=== PATIENT | female | born 1950 | race African-American/Black ===

== ENCOUNTER 2017-03-28 13:19 | Emergency (ER) | payer MEDICARE, MEDICAID ==
[~2017-03-28] VITALS: Ht 160 cm; Wt 63.0 kg
[~2017-03-28 13:19] MED LIST: ALBU6.7H2 IH; AMLO5TAB4 PO; ASPI-1158 PO; ATEN50TA PO; AZIT500T5 PO; BACL-141 PO; DIGO125T82 PO; FLUT1DIS3 IH; FURO-151 PO; SIMV20TA6 PO
[2017-03-28 20:04] LABS: CLARITY URINE CLOUDY (CLEAR); COLOR URINE YELLOW (YELLOW); GLUCOSE URINE NEGATIVE (NEGATIVE); KETONES URINE NEGATIVE (NEGATIVE); LEUKOCYTE ESTERASE URINE 3+ (NEGATIVE); NITRITE URINE NEGATIVE (NEGATIVE); OCCULT BLOOD URINE 3+ (NEGATIVE); PH URINE 5.5 (4.5-8.0); PROTEIN URINE 1+ (NEGATIVE); SPECIFIC GRAVITY URINE 1.013 (1.005-1.030); UROBILINOGEN URINE 0.2 E.U./dL (0.2-1.0)
[2017-03-28 20:10] LABS: BASOPHILS % 0.8 % (0.0-2.0); EOSINOPHILS % 3.1 % (0.0-5.0); HEMATOCRIT. 32.9 % (36.0-48.0); HEMOGLOBIN. 10.8 g/dL (12.0-16.0); LYMPHOCYTES % 32.2 % (20.0-50.0); MEAN CORPUSCULAR HEMOGLOBIN 28.4 pg (28.0-32.0); MEAN PLATELET VOLUME 7.6 fl (7.4-10.4); MONOCYTES % 7.6 % (2.0-8.0); NEUTROPHILS % 56.3 % (40.0-76.0); PLATELET 273 x1000/uL (130-400); RED BLOOD CELL COUNT 3.82 mill/uL (4.2-5.4)
[2017-03-28 20:15] LABS: CHLORIDE 102 mEq/L (98-107)
[2017-03-28 20:18] LABS: INR 1.1; PROTHROMBIN TIME 11.3 sec
[2017-03-28 20:22] LABS: CARBON DIOXIDE 32 mEq/L (21-32)
[2017-03-28 21:43] VITALS: BP 129/78
[2017-04-02] MEDS ORDERED: HYDR-519 PO (17:19)
== END 2017-03-28 22:46 | disposition home or self-care (01) ==
LOC: ER 13:19
DX: N39.0 Urinary tract infection, site not specified (principal); J44.9 Chronic obstructive pulmonary disease, unspecified; I10 Essential (primary) hypertension; Z87.891 Personal history of nicotine dependence; Z79.82 Long term (current) use of aspirin; Z87.01 Personal history of pneumonia (recurrent); Z88.0 Allergy status to penicillin
CPT/HCPCS: 36415; 80053; 81001; 83690; 85025; 85610; 99284

== ENCOUNTER 2017-04-17 13:34 | Emergency (ER) | payer MEDICARE, MEDICAID ==
[~2017-04-17] VITALS: Ht 160 cm; Wt 53.0 kg
[~2017-04-17 13:34] MED LIST changes: +HYDR-519 PO; +LOSA50TA20 PO; +MONT10TA24 PO; +NITR-87 PO
[2017-04-17 16:50] VITALS: BP 152/78
[2017-04-17] MEDS: TRAMADOL 50MG TABLET PO ONE (16:50)
== END 2017-04-17 18:59 | disposition home or self-care (01) ==
LOC: ER 18:59
DX: M25.562 Pain in left knee (principal); J44.9 Chronic obstructive pulmonary disease, unspecified; I10 Essential (primary) hypertension; M19.90 Unspecified osteoarthritis, unspecified site; Z79.82 Long term (current) use of aspirin; Z88.0 Allergy status to penicillin
CPT/HCPCS: 73560; 99284

== ENCOUNTER 2017-05-07 12:49 | Emergency (ER) | payer MEDICAID, MEDICARE ==
[~2017-05-07] VITALS: Ht 160 cm; Wt 54.0 kg
[2017-05-07 13:39] VITALS: BP 135/56
== END 2017-05-07 23:50 | disposition left against medical advice (07) ==
LOC: ER 12:49
DX: Z46.6 Encounter for fitting and adjustment of urinary device (principal); Z53.21 Procedure and treatment not carried out due to patient leaving prior to being seen by health care provider

== ENCOUNTER 2017-05-26 18:40 | Observation (INO) | payer MEDICARE, MEDICAID ==
[~2017-05-26] VITALS: Ht 157.5 cm; Wt 52.6 kg
[~2017-05-26 18:40] MED LIST changes: -ALBU6.7H2 IH; +ALBU6.7H3 IH
[2017-05-26] MEDS ORDERED: SODIUM CHLORIDE 0.9% 500 ML IV ONE (22:39)
[2017-05-26] MEDS ORDERED: MORPHINE SULFATE 4 MG/ML CPJ (NOT FOR IM USE) IV STA (22:39)
[2017-05-26] MEDS ORDERED: ONDANSETRON HCL 4MG/2ML VIAL IV STA (22:39)
[2017-05-26 23:31] LABS: EOSINOPHILS % 5.3 % (0.0-5.0); HEMATOCRIT. 32.7 % (36.0-48.0); HEMOGLOBIN. 10.8 g/dL (12.0-16.0); LYMPHOCYTES % 23.4 % (20.0-50.0); MEAN CORPUSCULAR HEMOGLOBIN 28.5 pg (28.0-32.0); MEAN CORPUSCULAR VOLUME 86.3 fL (81.0-99.0); MEAN PLATELET VOLUME 7.8 fl (7.4-10.4); NEUTROPHILS % 63.3 % (40.0-76.0); PLATELET 240 x1000/uL (130-400); RED CELL DISTRIBUTION WIDTH 15.1 % (11.6-14.6)
[2017-05-26 23:37] LABS: CHLORIDE 104 mEq/L (98-107)
[2017-05-26 23:40] LABS: INR 1.1; PROTHROMBIN TIME 11.4 sec (9.4-11.6)
[2017-05-26 23:41] LABS: CARBON DIOXIDE 29 mEq/L (21-32)
[2017-05-26 23:58] LABS: DIGOXIN 1.3 ng/mL (0.9-2.0)
[2017-05-27 01:15] LABS: CLARITY URINE TURBID (CLEAR); COLOR URINE YELLOW (YELLOW); KETONES URINE NEGATIVE (NEGATIVE); LEUKOCYTE ESTERASE URINE 3+ (NEGATIVE); NITRITE URINE NEGATIVE (NEGATIVE); OCCULT BLOOD URINE NEGATIVE (NEGATIVE); PH URINE >=9.0 (4.5-8.0); PROTEIN URINE 2+ (NEGATIVE); SPECIFIC GRAVITY URINE 1.019 (1.005-1.030)
[2017-05-27 03:45] VITALS: BP 142/51
[2017-05-27 05:00] VITALS: BP 142/51
[2017-05-27] MEDS ORDERED: ATROV3 NS (05:16)
[2017-05-27] MEDS ORDERED: IBUPROFEN 600MG TABLET PO PRN (10:15)
[2017-05-27 12:34] VITALS: BP 131/62
== END 2017-05-27 13:10 | disposition home health service (06) ==
LOC: ER 21:58 → EDBEDREQTM 05-27 00:31 → EDBEDREQSVC 05-27 00:31 → EDBEDREQ 05-27 00:31 → INTOOBSV 05-27 00:31 → 6EST 05-27 00:31 → ENRESERV 05-27 01:31
PROVIDERS: ADMIT Obstetrics & Gynecology; ATTEND Obstetrics & Gynecology
DX: N81.4 Uterovaginal prolapse, unspecified (principal); J44.9 Chronic obstructive pulmonary disease, unspecified; I10 Essential (primary) hypertension; Z87.01 Personal history of pneumonia (recurrent); Z87.440 Personal history of urinary (tract) infections; Z99.81 Dependence on supplemental oxygen
CPT/HCPCS: 36415; 76856; 80053; 80162; 81001; 83690; 85025; 85610; 86850; 86900; 86901; 96361; 96374; 96375; 99285; G0378; J2270; J2405; J7030

== ENCOUNTER 2017-05-30 14:53 | Emergency (ER) | payer MEDICARE, MEDICAID ==
[~2017-05-30] VITALS: Ht 162.6 cm; Wt 65.0 kg
[~2017-05-30 14:53] MED LIST changes: +ALBU6.7H2 IH; -ALBU6.7H3 IH; +ATROV3 NS
[2017-05-30 18:48] LABS: CLARITY URINE TURBID (CLEAR); COLOR URINE YELLOW (YELLOW); GLUCOSE URINE 1+ (NEGATIVE); KETONES URINE NEGATIVE (NEGATIVE); LEUKOCYTE ESTERASE URINE 3+ (NEGATIVE); NITRITE URINE NEGATIVE (NEGATIVE); OCCULT BLOOD URINE NEGATIVE (NEGATIVE); PH URINE >=9.0 (4.5-8.0); PROTEIN URINE 2+ (NEGATIVE); SPECIFIC GRAVITY URINE 1.017 (1.005-1.030)
[2017-05-30] MEDS ORDERED: KETOROLAC 15MG/ML VIAL IV ONE (20:15)
[2017-05-30 22:42] VITALS: BP 139/79
== END 2017-05-30 22:53 | disposition home or self-care (01) ==
LOC: ER 14:53
DX: N81.4 Uterovaginal prolapse, unspecified (principal); N39.0 Urinary tract infection, site not specified; J44.9 Chronic obstructive pulmonary disease, unspecified; I10 Essential (primary) hypertension; Z88.0 Allergy status to penicillin
CPT/HCPCS: 51702; 81001; 87077; 87086; 96374; 99284; J1885

== ENCOUNTER 2017-06-01 20:26 | Inpatient (IN) | payer MEDICARE, MEDICAID ==
[~2017-06-01] VITALS: Ht 160 cm; Wt 54.5 kg
[2017-06-01] MEDS ORDERED: SODIUM CHLORIDE 0.9% 500 ML IV ONE (22:29)
[2017-06-01] MEDS ORDERED: ACETAMINOPHEN 325MG TABLET PO ONE (22:30)
[2017-06-01] MEDS ORDERED: SODIUM CHLORIDE 0.9% 1000ML BAG (SEPSIS BOLUS) IV ONE (22:30)
[2017-06-01] MEDS ORDERED: LEVOFLOXACIN 750MG PREMIX 150 ML IV ONE (22:30)
[2017-06-01 23:19] LABS: INR 1.2; PROTHROMBIN TIME 12.3 sec (9.4-11.6)
[2017-06-01 23:21] LABS: HEMATOCRIT. 31.8 % (36.0-48.0); HEMOGLOBIN. 10.4 g/dL (12.0-16.0); MEAN CORPUSCULAR HEMOGLOBIN 28.2 pg (28.0-32.0); MEAN CORPUSCULAR VOLUME 86.1 fL (81.0-99.0); MEAN PLATELET VOLUME 8.5 fl (7.4-10.4); PLATELET 211 x1000/uL (130-400); RED CELL DISTRIBUTION WIDTH 14.9 % (11.6-14.6)
[2017-06-01 23:27] LABS: CARBON DIOXIDE 28 mEq/L (21-32); CHLORIDE 100 mEq/L (98-107); TROPONIN I < 0.02 ng/mL (0.00-0.04)
[2017-06-02 00:09] LABS: CLARITY URINE TURBID (CLEAR); COLOR URINE YELLOW (YELLOW); GLUCOSE URINE NEGATIVE (NEGATIVE); KETONES URINE NEGATIVE (NEGATIVE); LEUKOCYTE ESTERASE URINE 3+ (NEGATIVE); NITRITE URINE NEGATIVE (NEGATIVE); OCCULT BLOOD URINE 3+ (NEGATIVE); PROTEIN URINE 2+ (NEGATIVE); SPECIFIC GRAVITY URINE 1.017 (1.005-1.030)
[2017-06-02 01:02] LABS: PLATELET ESTIMATE NORMAL
[2017-06-02] MEDS ORDERED: MAGNESIUM/ALUMINUM HYDROXIDE/SIMETHICONE 30ML UDC PO PRN (01:15)
[2017-06-02] MEDS ORDERED: CLONIDINE 0.1MG TABLET PO PRN ×2 (01:15→13:15)
[2017-06-02] MEDS ORDERED: ONDANSETRON HCL 4MG/2ML VIAL IV PRN (01:15)
[2017-06-02] MEDS ORDERED: LEVOFLOXACIN 500MG PREMIX 100 ML IV SCH (01:15)
[2017-06-02 03:53] VITALS: BP 121/71
[2017-06-02] MEDS: ACETAMINOPHEN 325MG TABLET PO PRN ×3 (03:53→20:22)
[2017-06-02 04:00] VITALS: BP 121/71
[2017-06-02] MEDS ORDERED: VANCOMYCIN 1 G PREMIX 200 ML IV NR (06:00)
[2017-06-02 08:00] VITALS: BP 99/52
[2017-06-02 09:53] LABS: BASOPHILS % 0.4 % (0.0-2.0); EOSINOPHILS % 1.1 % (0.0-5.0); HEMOGLOBIN. 9.8 g/dL (12.0-16.0); MEAN CORPUSCULAR HEMOGLOBIN 28.6 pg (28.0-32.0); MEAN PLATELET VOLUME 8.5 fl (7.4-10.4); MONOCYTES % 12.9 % (2.0-8.0); NEUTROPHILS % 72.6 % (40.0-76.0); PLATELET 184 x1000/uL (130-400); RED BLOOD CELL COUNT 3.45 mill/uL (4.2-5.4)
[2017-06-02] MEDS: SODIUM CHLORIDE 0.9% 1,000 ML IV SCH (12:00)
[2017-06-02] MEDS: ENOXAPARIN 40MG/0.4ML SYR SUBCUT SCH (12:10)
[2017-06-02 12:43] LABS: HEPATITIS B SURFACE ANTIGEN NEGATIVE
[2017-06-02] MEDS ORDERED: ALBUTEROL (0.5%) 2.5MG/0.5ML NEB HHN PRN (13:15)
[2017-06-02] MEDS: ASPIRIN 81MG EC TABLET PO SCH (13:48)
[2017-06-02] MEDS: AMLODIPINE 2.5MG TABLET PO SCH ×2 (13:49→21:00)
[2017-06-02] MEDS: IPRATROPIUM BROMIDE (0.02%) 0.5MG/2.5ML NEB HHN PRN (13:57)
[2017-06-02] MEDS: VANCOMYCIN 1 G PREMIX 200 ML IV SCH (15:04)
[2017-06-02 16:00] VITALS: BP 118/67
[2017-06-02] MEDS ORDERED: NAPR220T66 PO (19:18)
[2017-06-02] MEDS ORDERED: ATOR20TA PO (19:18)
[2017-06-02 20:00] VITALS: BP 122/74
[2017-06-02] MEDS ORDERED: VANCOMYCIN 750 MG PREMIX 150 ML IV SCH (20:00)
[2017-06-03] VITALS: BP 128/72
[2017-06-03] MEDS: LEVOFLOXACIN 250MG PREMIX 50 ML IV SCH (00:33)
[2017-06-03] MEDS: SODIUM CHLORIDE 0.9% 1,000 ML IV SCH (00:34)
[2017-06-03] MEDS: IPRATROPIUM BROMIDE (0.02%) 0.5MG/2.5ML NEB HHN PRN ×3 (01:35→21:33)
[2017-06-03 04:00] VITALS: BP 133/75
[2017-06-03] MEDS: ACETAMINOPHEN 325MG TABLET PO PRN ×2 (04:06→20:39)
[2017-06-03 06:17] LABS: HEMATOCRIT. 28.2 % (36.0-48.0); HEMOGLOBIN. 9.2 g/dL (12.0-16.0); MEAN CORPUSCULAR HEMOGLOBIN 28.2 pg (28.0-32.0); MEAN CORPUSCULAR VOLUME 86.4 fL (81.0-99.0); MEAN PLATELET VOLUME 8.5 fl (7.4-10.4); PLATELET 173 x1000/uL (130-400); RED BLOOD CELL COUNT 3.27 mill/uL (4.2-5.4); RED CELL DISTRIBUTION WIDTH 14.9 % (11.6-14.6)
[2017-06-03 06:42] LABS: CHLORIDE 105 mEq/L (98-107)
[2017-06-03 07:01] LABS: CARBON DIOXIDE 25 mEq/L (21-32); CREATINE KINASE 76 IU/L (26-192); CREATINE KINASE MB FRACTION 0.7 ng/mL (0.5-3.6); TROPONIN I < 0.02 ng/mL (0.00-0.04)
[2017-06-03 08:00] VITALS: BP 128/72
[2017-06-03] MEDS: AMLODIPINE 2.5MG TABLET PO SCH ×2 (08:29→20:39)
[2017-06-03] MEDS: ASPIRIN 81MG EC TABLET PO SCH (08:30)
[2017-06-03] MEDS: VANCOMYCIN 1 G PREMIX 200 ML IV SCH (11:35)
[2017-06-03 12:00] VITALS: BP 129/79
[2017-06-03] MEDS: ENOXAPARIN 40MG/0.4ML SYR SUBCUT SCH (13:00)
[2017-06-03] MEDS ORDERED: NA PHOS,M-B/NA PHOS,DI-BA ENEMA 118ML PR SCH (14:30)
[2017-06-03] MEDS ORDERED: NA PHOS,M-B/NA PHOS,DI-BA ENEMA 118ML PR PRN (14:30)
[2017-06-03] MEDS ORDERED: LACTULOSE 20G/30ML UDC PO SCH (14:30)
[2017-06-03] MEDS ORDERED: DOCUSATE SODIUM 100MG CAPSULE PO SCH (14:35)
[2017-06-03 16:00] VITALS: BP 126/63
[2017-06-03] MEDS: DOCUSATE SODIUM 250MG CAPSULE PO SCH (18:38)
[2017-06-03 18:56] LABS: PLATELET ESTIMATE NORMAL
[2017-06-03 20:00] VITALS: BP 124/76
[2017-06-04] VITALS: BP 132/75
[2017-06-04] MEDS: LEVOFLOXACIN 250MG PREMIX 50 ML IV SCH (01:39)
[2017-06-04] MEDS: SODIUM CHLORIDE 0.9% 1,000 ML IV SCH (03:35)
[2017-06-04] MEDS: VANCOMYCIN 1 G PREMIX 200 ML IV SCH (03:35)
[2017-06-04 04:00] VITALS: BP 131/77
[2017-06-04] MEDS: ACETAMINOPHEN 325MG TABLET PO PRN (06:23)
[2017-06-04 06:41] LABS: BASOPHILS % 0.7 % (0.0-2.0); EOSINOPHILS % 4.9 % (0.0-5.0); HEMATOCRIT. 28.4 % (36.0-48.0); HEMOGLOBIN. 9.4 g/dL (12.0-16.0); MEAN CORPUSCULAR HEMOGLOBIN 28.3 pg (28.0-32.0); MEAN CORPUSCULAR VOLUME 85.1 fL (81.0-99.0); MEAN PLATELET VOLUME 8.3 fl (7.4-10.4); MONOCYTES % 12.4 % (2.0-8.0); PLATELET 206 x1000/uL (130-400); RED BLOOD CELL COUNT 3.34 mill/uL (4.2-5.4); RED CELL DISTRIBUTION WIDTH 15.1 % (11.6-14.6)
[2017-06-04 07:59] LABS: CARBON DIOXIDE 28 mEq/L (21-32); CHLORIDE 103 mEq/L (98-107); PHOSPHORUS 2.3 mg/dL (2.5-4.9)
[2017-06-04 08:00] VITALS: BP 110/77
[2017-06-04] MEDS: ASPIRIN 81MG EC TABLET PO SCH (08:28)
[2017-06-04] MEDS: AMLODIPINE 2.5MG TABLET PO SCH ×3 (08:28→21:00)
[2017-06-04] MEDS: DOCUSATE SODIUM 250MG CAPSULE PO SCH (08:29)
[2017-06-04] MEDS: ENOXAPARIN 40MG/0.4ML SYR SUBCUT SCH (08:34)
[2017-06-04 12:00] VITALS: BP 133/72
[2017-06-04] MEDS ORDERED: SODIUM PHOS,M-BASIC-D-BASIC 15 MM in DEXT 5% WATER 245 ML IV NR (12:00)
[2017-06-04] MEDS ORDERED: FENTANYL CITRATE/PF 50MCG/ML 2ML VIAL ONE ×2 (15:38→16:30)
[2017-06-04] MEDS ORDERED: MIDAZOLAM HCL 2 MG/2 ML VIAL ONE (15:38)
[2017-06-04] MEDS ORDERED: PROPOFOL 200MG/20ML VIAL IV ONE (15:39)
[2017-06-04] MEDS ORDERED: LIDOCAINE HCL 1% 20ML VIAL (Pyxis) INJ ONE (15:39)
[2017-06-04] MEDS ORDERED: ROCURONIUM BROMIDE 10MG/ML VIAL 5ML IV ONE (15:39)
[2017-06-04] MEDS ORDERED: SODIUM CHLORIDE 0.9% 1,000 ML IV SCH (16:27)
[2017-06-04] MEDS ORDERED: DEXAMETHASONE 4MG/ML 1ML VIAL ONE (16:30)
[2017-06-04] MEDS ORDERED: ONDANSETRON HCL 4MG/2ML VIAL IV PRN ×2 (16:30→18:00)
[2017-06-04] MEDS ORDERED: ONDANSETRON HCL 4MG/2ML VIAL ONE (16:30)
[2017-06-04] MEDS ORDERED: DIPHENHYDRAMINE 25MG CAPSULE PO PRN (18:00)
[2017-06-04] MEDS ORDERED: LEVOFLOXACIN 250MG PREMIX 50 ML IV SCH (18:00)
[2017-06-04] MEDS ORDERED: HYDROCODONE/ACETAMINOPHEN 5/325MG TABLET PO PRN (18:00)
[2017-06-04] MEDS ORDERED: ACETAMINOPHEN 500MG TABLET PO PRN (18:00)
[2017-06-04] MEDS ORDERED: KETOROLAC 30MG/ML VIAL ONE (18:04)
[2017-06-04] MEDS: HYDROMORPHONE HCL/PF 2MG/ML CPJ IV PRN ×4 (18:17→19:09)
[2017-06-04] MEDS: ALBUTEROL (0.5%) 2.5MG/0.5ML NEB HHN SCH ×2 (18:50→21:22)
[2017-06-04] MEDS: IPRATROPIUM BROMIDE (0.02%) 0.5MG/2.5ML NEB HHN SCH (18:50)
[2017-06-04] MEDS ORDERED: LABETALOL 5MG/ML SYR 20 MG/4 ML SYRINGE IV PRN (19:00)
[2017-06-04] MEDS: DOCUSATE SODIUM 100MG CAPSULE PO SCH (21:00)
[2017-06-04] MEDS: HYDROMORPHONE HCL/PF 2MG/ML CPJ IM PRN (21:24)
[2017-06-05] VITALS (7 sets, daily range): BP systolic 101–141; BP diastolic 51–85
[2017-06-05] MEDS: HYDROMORPHONE HCL/PF 2MG/ML CPJ IM PRN ×4 (00:21→12:02)
[2017-06-05] MEDS: ALBUTEROL (0.5%) 2.5MG/0.5ML NEB HHN SCH ×3 (00:49→12:02)
[2017-06-05] MEDS: SIMETHICONE 80MG TABLET CHEW PO SCH ×5 (02:41→21:00)
[2017-06-05] MEDS: CLONIDINE 0.1MG TABLET PO SCH ×4 (02:42→18:00)
[2017-06-05] MEDS: DEXT 5%/LACTATED RINGERS 1,000 ML IV SCH ×2 (02:42→14:49)
[2017-06-05] MEDS: VANCOMYCIN 1 G PREMIX 200 ML IV SCH (02:44)
[2017-06-05] MEDS: LEVOFLOXACIN 250MG PREMIX 50 ML IV SCH (02:46)
[2017-06-05] MEDS: SODIUM CHLORIDE 0.9% 1,000 ML IV SCH ×3 (05:40→23:05)
[2017-06-05 06:30] LABS: HEMATOCRIT. 25.3 % (36.0-48.0); HEMOGLOBIN. 8.3 g/dL (12.0-16.0); MEAN CORPUSCULAR VOLUME 85.1 fL (81.0-99.0); MEAN PLATELET VOLUME 8.1 fl (7.4-10.4); PLATELET 230 x1000/uL (130-400); RED BLOOD CELL COUNT 2.98 mill/uL (4.2-5.4)
[2017-06-05 06:58] LABS: CARBON DIOXIDE 27 mEq/L (21-32); CHLORIDE 104 mEq/L (98-107)
[2017-06-05] MEDS: IPRATROPIUM BROMIDE (0.02%) 0.5MG/2.5ML NEB HHN SCH ×4 (08:16→21:18)
[2017-06-05] MEDS: AMLODIPINE 2.5MG TABLET PO SCH ×3 (08:46→21:00)
[2017-06-05] MEDS: HYDROCODONE/ACETAMINOPHEN 5/325MG TABLET PO PRN ×3 (08:48→23:04)
[2017-06-05] MEDS: ASPIRIN 81MG TABLET PO SCH (08:49)
[2017-06-05] MEDS: DOCUSATE SODIUM 250MG CAPSULE PO SCH (08:49)
[2017-06-05] MEDS: ASPIRIN 81MG EC TABLET PO SCH (09:00)
[2017-06-05] MEDS ORDERED: ENOXAPARIN 40MG/0.4ML SYR SUBCUT SCH (09:00)
[2017-06-05] MEDS: ENOXAPARIN 40MG/0.4ML SYR SUBCUT SCH (12:53)
[2017-06-05 13:38] LABS: PLATELET ESTIMATE NORMAL
[2017-06-05] MEDS: HYDROMORPHONE HCL/PF 2MG/ML CPJ IV PRN (19:47)
[2017-06-05] MEDS: DOCUSATE SODIUM 100MG CAPSULE PO SCH (21:33)
[2017-06-05] MEDS: CEPHALEXIN 500MG CAPSULE PO SCH (21:33)
[2017-06-06] MEDS: CLONIDINE 0.1MG TABLET PO SCH ×6 (00:08→23:38)
[2017-06-06] MEDS: IPRATROPIUM BROMIDE (0.02%) 0.5MG/2.5ML NEB HHN SCH ×6 (01:18→21:00)
[2017-06-06] MEDS: HYDROMORPHONE HCL/PF 2MG/ML CPJ IV PRN ×3 (01:58→17:45)
[2017-06-06 04:00] VITALS: BP 146/79
[2017-06-06] MEDS: HYDROCODONE/ACETAMINOPHEN 5/325MG TABLET PO PRN ×3 (05:18→20:33)
[2017-06-06] MEDS: CEPHALEXIN 500MG CAPSULE PO SCH ×3 (06:10→22:23)
[2017-06-06 08:00] VITALS: BP 140/78
[2017-06-06] MEDS: DOCUSATE SODIUM 250MG CAPSULE PO SCH (09:11)
[2017-06-06] MEDS: ASPIRIN 81MG TABLET PO SCH (09:12)
[2017-06-06] MEDS: SIMETHICONE 80MG TABLET CHEW PO SCH ×4 (09:12→21:15)
[2017-06-06] MEDS: AMLODIPINE 2.5MG TABLET PO SCH ×2 (09:13→21:00)
[2017-06-06 11:00] LABS: BASOPHILS % 0.7 % (0.0-2.0); EOSINOPHILS % 4.1 % (0.0-5.0); HEMATOCRIT. 25.5 % (36.0-48.0); HEMOGLOBIN. 8.6 g/dL (12.0-16.0); LYMPHOCYTES % 15.3 % (20.0-50.0); MEAN CORPUSCULAR VOLUME 86.3 fL (81.0-99.0); MEAN PLATELET VOLUME 7.9 fl (7.4-10.4); MONOCYTES % 5.9 % (2.0-8.0); PLATELET 244 x1000/uL (130-400); RED BLOOD CELL COUNT 2.95 mill/uL (4.2-5.4)
[2017-06-06 11:30] LABS: CHLORIDE 101 mEq/L (98-107)
[2017-06-06 11:37] LABS: CARBON DIOXIDE 29 mEq/L (21-32)
[2017-06-06 12:00] VITALS: BP 128/65
[2017-06-06] MEDS: ENOXAPARIN 40MG/0.4ML SYR SUBCUT SCH (13:11)
[2017-06-06] MEDS: LACTULOSE 20G/30ML UDC PO PRN (13:24)
[2017-06-06 16:00] VITALS: BP 119/70
[2017-06-06 19:55] VITALS: BP 107/53
[2017-06-06 20:00] VITALS: BP 105/53
[2017-06-06] MEDS: ALBUTEROL (0.5%) 2.5MG/0.5ML NEB HHN SCH (21:14)
[2017-06-06] MEDS: DOCUSATE SODIUM 100MG CAPSULE PO SCH (21:15)
[2017-06-07] VITALS: BP 92/53
[2017-06-07] MEDS: ALBUTEROL (0.5%) 2.5MG/0.5ML NEB HHN SCH ×6 (01:07→16:17)
[2017-06-07] MEDS: IPRATROPIUM BROMIDE (0.02%) 0.5MG/2.5ML NEB HHN SCH ×7 (01:08→21:23)
[2017-06-07 04:00] VITALS: BP 116/70
[2017-06-07] MEDS: HYDROMORPHONE HCL/PF 2MG/ML CPJ IV PRN ×3 (05:45→17:46)
[2017-06-07] MEDS: CLONIDINE 0.1MG TABLET PO SCH ×3 (06:00→17:46)
[2017-06-07] MEDS: CEPHALEXIN 500MG CAPSULE PO SCH ×3 (06:20→21:53)
[2017-06-07 06:55] LABS: BASOPHILS % 0.9 % (0.0-2.0); EOSINOPHILS % 3.8 % (0.0-5.0); HEMATOCRIT. 25.9 % (36.0-48.0); HEMOGLOBIN. 8.5 g/dL (12.0-16.0); LYMPHOCYTES % 24.1 % (20.0-50.0); MEAN CORPUSCULAR HEMOGLOBIN 28.3 pg (28.0-32.0); MEAN CORPUSCULAR VOLUME 86.2 fL (81.0-99.0); MONOCYTES % 4.5 % (2.0-8.0); NEUTROPHILS % 66.7 % (40.0-76.0); PLATELET 269 x1000/uL (130-400); RED BLOOD CELL COUNT 3.01 mill/uL (4.2-5.4); RED CELL DISTRIBUTION WIDTH 15.4 % (11.6-14.6)
[2017-06-07 08:00] VITALS: BP 107/68
[2017-06-07] MEDS: ASPIRIN 81MG TABLET PO SCH (08:52)
[2017-06-07] MEDS: AMLODIPINE 2.5MG TABLET PO SCH ×2 (08:52→21:00)
[2017-06-07] MEDS: HYDROCODONE/ACETAMINOPHEN 5/325MG TABLET PO PRN ×3 (08:53→20:35)
[2017-06-07] MEDS: SIMETHICONE 80MG TABLET CHEW PO SCH ×4 (08:57→21:53)
[2017-06-07] MEDS: DOCUSATE SODIUM 250MG CAPSULE PO SCH (08:57)
[2017-06-07] MEDS: BISACODYL 10MG SUPP PR PRN (10:31)
[2017-06-07] MEDS: LACTULOSE 20G/30ML UDC PO PRN ×2 (10:31→10:59)
[2017-06-07 12:00] VITALS: BP 109/71
[2017-06-07] MEDS: ENOXAPARIN 40MG/0.4ML SYR SUBCUT SCH (13:54)
[2017-06-07 16:00] VITALS: BP 104/66
[2017-06-07 20:00] VITALS: BP 100/62
[2017-06-07] MEDS: DOCUSATE SODIUM 100MG CAPSULE PO SCH (21:53)
[2017-06-08] VITALS: BP 143/74
[2017-06-08] MEDS: HYDROMORPHONE HCL/PF 2MG/ML CPJ IV PRN ×7 (00:03→21:10)
[2017-06-08] MEDS: CLONIDINE 0.1MG TABLET PO SCH ×4 (00:03→17:05)
[2017-06-08] MEDS: HYDROCODONE/ACETAMINOPHEN 5/325MG TABLET PO PRN ×3 (03:48→13:44)
[2017-06-08 04:00] VITALS: BP 136/83
[2017-06-08] MEDS: ALBUTEROL (0.5%) 2.5MG/0.5ML NEB HHN SCH (04:10)
[2017-06-08] MEDS: IPRATROPIUM BROMIDE (0.02%) 0.5MG/2.5ML NEB HHN SCH (04:11)
[2017-06-08] MEDS ORDERED: IPRATROPIUM/ALBUTEROL 0.5-3(2.5)MG/3ML NEB HHN PRN (04:26)
[2017-06-08] MEDS: CEPHALEXIN 500MG CAPSULE PO SCH ×3 (06:04→21:09)
[2017-06-08 07:37] LABS: BASOPHILS % 0.6 % (0.0-2.0); EOSINOPHILS % 4.3 % (0.0-5.0); HEMATOCRIT. 26.3 % (36.0-48.0); HEMOGLOBIN. 8.7 g/dL (12.0-16.0); MEAN CORPUSCULAR HEMOGLOBIN 28.6 pg (28.0-32.0); MEAN CORPUSCULAR VOLUME 86.3 fL (81.0-99.0); MEAN PLATELET VOLUME 7.8 fl (7.4-10.4); MONOCYTES % 5.6 % (2.0-8.0); NEUTROPHILS % 75.5 % (40.0-76.0); PLATELET 313 x1000/uL (130-400); RED BLOOD CELL COUNT 3.05 mill/uL (4.2-5.4)
[2017-06-08 08:00] VITALS: BP 130/74
[2017-06-08] MEDS: ASPIRIN 81MG TABLET PO SCH (08:02)
[2017-06-08] MEDS: SIMETHICONE 80MG TABLET CHEW PO SCH ×4 (08:02→21:10)
[2017-06-08] MEDS: AMLODIPINE 2.5MG TABLET PO SCH ×2 (08:02→21:10)
[2017-06-08] MEDS: DOCUSATE SODIUM 250MG CAPSULE PO SCH (08:03)
[2017-06-08 08:17] LABS: CARBON DIOXIDE 27 mEq/L (21-32); CHLORIDE 103 mEq/L (98-107)
[2017-06-08] MEDS: IPRATROPIUM/ALBUTEROL 0.5-3(2.5)MG/3ML NEB HHN SCH ×4 (09:13→20:36)
[2017-06-08 09:36] LABS: CLARITY URINE CLEAR (CLEAR); COLOR URINE DARK YELLOW (YELLOW); GLUCOSE URINE NEGATIVE (NEGATIVE); KETONES URINE NEGATIVE (NEGATIVE); LEUKOCYTE ESTERASE URINE 2+ (NEGATIVE); NITRITE URINE NEGATIVE (NEGATIVE); OCCULT BLOOD URINE TRACE (NEGATIVE); PH URINE 6.5 (4.5-8.0); PROTEIN URINE TRACE (NEGATIVE); SPECIFIC GRAVITY URINE 1.019 (1.005-1.030)
[2017-06-08 12:00] VITALS: BP 128/72
[2017-06-08] MEDS: ENOXAPARIN 40MG/0.4ML SYR SUBCUT SCH (13:45)
[2017-06-08 16:00] VITALS: BP 135/80
[2017-06-08 20:00] VITALS: BP 105/67
[2017-06-08] MEDS: DOCUSATE SODIUM 100MG CAPSULE PO SCH (21:10)
[2017-06-09] MEDS: HYDROMORPHONE HCL/PF 2MG/ML CPJ IV PRN ×6 (00:07→15:42)
[2017-06-09] MEDS: CLONIDINE 0.1MG TABLET PO SCH ×4 (00:11→17:57)
[2017-06-09] MEDS: IPRATROPIUM/ALBUTEROL 0.5-3(2.5)MG/3ML NEB HHN SCH ×5 (00:22→17:40)
[2017-06-09 04:00] VITALS: BP 139/82
[2017-06-09] MEDS: CEPHALEXIN 500MG CAPSULE PO SCH ×2 (06:00→14:54)
[2017-06-09 07:20] LABS: BASOPHILS % 0.6 % (0.0-2.0); EOSINOPHILS % 3.9 % (0.0-5.0); HEMATOCRIT. 23.8 % (36.0-48.0); LYMPHOCYTES % 14.5 % (20.0-50.0); MEAN CORPUSCULAR HEMOGLOBIN 28.9 pg (28.0-32.0); MEAN CORPUSCULAR VOLUME 86.2 fL (81.0-99.0); MEAN PLATELET VOLUME 7.7 fl (7.4-10.4); PLATELET 322 x1000/uL (130-400); RED BLOOD CELL COUNT 2.76 mill/uL (4.2-5.4)
[2017-06-09 07:44] LABS: CARBON DIOXIDE 28 mEq/L (21-32); CHLORIDE 103 mEq/L (98-107)
[2017-06-09 08:00] VITALS: BP 125/72
[2017-06-09] MEDS: SIMETHICONE 80MG TABLET CHEW PO SCH ×3 (08:40→18:22)
[2017-06-09] MEDS: AMLODIPINE 2.5MG TABLET PO SCH (08:40)
[2017-06-09] MEDS: ASPIRIN 81MG TABLET PO SCH (08:40)
[2017-06-09] MEDS: DOCUSATE SODIUM 250MG CAPSULE PO SCH (08:52)
[2017-06-09 12:00] VITALS: BP 128/72
[2017-06-09] MEDS: BISACODYL 10MG SUPP PR PRN (12:16)
[2017-06-09] MEDS: ENOXAPARIN 40MG/0.4ML SYR SUBCUT SCH (13:00)
[2017-06-09 16:00] VITALS: BP 128/77
[2017-06-09 18:26] VITALS: BP 128/77
[2017-06-09] MEDS ORDERED: HYDROCODONE/ACETAMINOPHEN 5/325MG TABLET PO PRN (18:30)
== END 2017-06-09 19:25 | disposition home or self-care (01) | DRG 742 ==
LOC: ER 22:12 → 7WST 06-02 00:10 → EDBEDREQ 06-02 00:12 → EDBEDREQDT 06-02 00:12 → EDBEDREQSVC 06-02 00:12 → EDBEDREQTM 06-02 00:12 → ENRESERV 06-02 00:34
PROVIDERS: ADMIT Internal Medicine Nephrology; ATTEND Internal Medicine Nephrology
PROC: 0UTC0ZZ Resection of Cervix, Open Approach (ICD-10-PCS; 2017-06-04)
PROC: 0UT20ZZ Resection of Bilateral Ovaries, Open Approach (ICD-10-PCS; 2017-06-04)
PROC: 0UT70ZZ Resection of Bilateral Fallopian Tubes, Open Approach (ICD-10-PCS; 2017-06-04)
PROC: 0TSD0ZZ Reposition Urethra, Open Approach (ICD-10-PCS; 2017-06-04)
PROC: 0UT90ZZ Resection of Uterus, Open Approach (ICD-10-PCS; principal; 2017-06-04 15:00)
DX: N81.4 Uterovaginal prolapse, unspecified (principal); E43 Unspecified severe protein-calorie malnutrition; I47.1 Supraventricular tachycardia; I48.0 Paroxysmal atrial fibrillation; J44.9 Chronic obstructive pulmonary disease, unspecified; I11.9 Hypertensive heart disease without heart failure; Z99.81 Dependence on supplemental oxygen; N13.8 Other obstructive and reflux uropathy; N39.0 Urinary tract infection, site not specified; N13.2 Hydronephrosis with renal and ureteral calculous obstruction; N13.30 Unspecified hydronephrosis; B95.61 Methicillin susceptible Staphylococcus aureus infection as the cause of diseases classified elsewhere; D64.9 Anemia, unspecified; E78.00 Pure hypercholesterolemia, unspecified; E78.5 Hyperlipidemia, unspecified; B19.20 Unspecified viral hepatitis C without hepatic coma; I25.10 Atherosclerotic heart disease of native coronary artery without angina pectoris; I65.29 Occlusion and stenosis of unspecified carotid artery; I73.9 Peripheral vascular disease, unspecified; J98.01 Acute bronchospasm; Z82.49 Family history of ischemic heart disease and other diseases of the circulatory system; Z88.0 Allergy status to penicillin; Z87.891 Personal history of nicotine dependence; Z68.21 Body mass index [BMI] 21.0-21.9, adult
CPT/HCPCS: 36415; 51702; 71010; 74000; 74176; 76856; 80048; 80053; 80076; 80202; 81001; 81003; 82270; 82550; 82553; 83605; 83735; 84100; 84443; 84484; 85025; 85610; 86803; 86850; 86900; 86920; 87040; 87077; 87086; 87340; 88307; 93005; 94640; 94664; 96374; 97116; 97162; 97164; 97166; 97530; 97535; 99284; 99285; C1893; J1100; J1170; J1650; J1885; J1956; J2250; J2405; J2704; J3010; J3370; J3490; J7030; J7040; J7050; J7060; J7121; J7611; J7620; Q0163; A4315

== ENCOUNTER 2017-08-08 13:47 | Inpatient (IN) | payer MEDICARE, MEDICAID ==
[~2017-08-08] VITALS: Ht 160 cm; Wt 51.3 kg
[~2017-08-08 13:47] MED LIST changes: -ALBU6.7H2 IH; +ALBU6.7H3 IH; +ATOR20TA PO; +NAPR220T66 PO
[2017-08-08] MEDS ORDERED: SODIUM CHLORIDE 0.9% 1000ML BAG (SEPSIS BOLUS) IV ONE (15:30)
[2017-08-08 15:53] LABS: BASOPHILS % 0.4 % (0.0-2.0); EOSINOPHILS % 4.1 % (0.0-5.0); HEMATOCRIT. 30.2 % (36.0-48.0); HEMOGLOBIN. 10.1 g/dL (12.0-16.0); LYMPHOCYTES % 29.8 % (20.0-50.0); MEAN CORPUSCULAR VOLUME 87.1 fL (81.0-99.0); MEAN PLATELET VOLUME 8.2 fl (7.4-10.4); MONOCYTES % 6.4 % (2.0-8.0); NEUTROPHILS % 59.3 % (40.0-76.0); PLATELET 202 x1000/uL (130-400); RED BLOOD CELL COUNT 3.47 mill/uL (4.2-5.4); RED CELL DISTRIBUTION WIDTH 14.8 % (11.6-14.6)
[2017-08-08 15:57] LABS: INR 1.1; PROTHROMBIN TIME 11.1 sec (9.4-11.6)
[2017-08-08 15:58] LABS: CLARITY URINE CLEAR (CLEAR); COLOR URINE YELLOW (YELLOW); KETONES URINE NEGATIVE (NEGATIVE); LEUKOCYTE ESTERASE URINE NEGATIVE (NEGATIVE); NITRITE URINE NEGATIVE (NEGATIVE); OCCULT BLOOD URINE NEGATIVE (NEGATIVE); PROTEIN URINE NEGATIVE (NEGATIVE); SPECIFIC GRAVITY URINE 1.017 (1.005-1.030); UROBILINOGEN URINE 0.2 E.U./dL (0.2-1.0)
[2017-08-08 16:06] LABS: CARBON DIOXIDE 34 mEq/L (21-32); CHLORIDE 103 mEq/L (98-107)
[2017-08-08] MEDS ORDERED: METHYLPREDNISOLONE SOD SUCC 125 MG/2 ML VIAL IV STA (17:23)
[2017-08-08] MEDS ORDERED: IPRATROPIUM BROMIDE (0.02%) 0.5MG/2.5ML NEB HHN STA (17:23)
[2017-08-08] MEDS ORDERED: ALBUTEROL (0.083%) 2.5MG/3ML NEB HHN SCH (17:30)
[2017-08-08] MEDS ORDERED: MAGNESIUM 2 G PREMIX 50 ML IV ONE (19:15)
[2017-08-08] MEDS ORDERED: LEVOFLOXACIN 500MG PREMIX 100 ML IV ONE (19:45)
[2017-08-08] MEDS ORDERED: HYDROCODONE/ACETAMINOPHEN 10/325MG TABLET PO PRN (21:00)
[2017-08-08] MEDS ORDERED: ONDANSETRON HCL 4MG/2ML VIAL IV PRN (21:00)
[2017-08-08] MEDS ORDERED: CLONIDINE 0.1MG TABLET PO PRN (21:00)
[2017-08-08] MEDS ORDERED: GUAIFENESIN 200MG/10ML SUGAR FREE UDC PO PRN (21:00)
[2017-08-08] MEDS ORDERED: MORPHINE SULFATE 2 MG/ML CPJ (NOT FOR IM USE) IV PRN (21:00)
[2017-08-08] MEDS ORDERED: LORAZEPAM 2MG/ML CPJ IV PRN (21:00)
[2017-08-08] MEDS ORDERED: DOCUSATE SODIUM 100MG CAPSULE PO PRN (21:00)
[2017-08-08] MEDS ORDERED: LEVOFLOXACIN 500MG PREMIX 100 ML IV SCH (21:00)
[2017-08-08] MEDS ORDERED: MAGNESIUM/ALUMINUM HYDROXIDE/SIMETHICONE 30ML UDC PO PRN (21:00)
[2017-08-08] MEDS ORDERED: LORAZEPAM 0.5MG TABLET PO PRN (21:15)
[2017-08-08 22:31] LABS: CHLORIDE 103 mEq/L (98-107)
[2017-08-08 22:33] LABS: CARBON DIOXIDE 27 mEq/L (21-32)
[2017-08-08 22:41] LABS: TROPONIN I < 0.02 ng/mL (0.00-0.04)
[2017-08-09 00:20] VITALS: BP 141/61
[2017-08-09] MEDS: IPRATROPIUM/ALBUTEROL 0.5-3(2.5)MG/3ML NEB INH PRN ×3 (01:11→15:25)
[2017-08-09 04:00] VITALS: BP 128/67
[2017-08-09] MEDS: METHYLPREDNISOLONE SOD SUCC 125 MG/2 ML VIAL IV SCH ×2 (05:21→13:01)
[2017-08-09 06:43] LABS: BASOPHILS % 0.2 % (0.0-2.0); HEMATOCRIT. 28.7 % (36.0-48.0); HEMOGLOBIN. 9.5 g/dL (12.0-16.0); MEAN CORPUSCULAR HEMOGLOBIN 28.4 pg (28.0-32.0); MEAN CORPUSCULAR VOLUME 86.1 fL (81.0-99.0); MEAN PLATELET VOLUME 8.3 fl (7.4-10.4); MONOCYTES % 0.8 % (2.0-8.0); PLATELET 194 x1000/uL (130-400); RED BLOOD CELL COUNT 3.33 mill/uL (4.2-5.4); RED CELL DISTRIBUTION WIDTH 14.4 % (11.6-14.6)
[2017-08-09 08:00] VITALS: BP 109/64
[2017-08-09] MEDS ORDERED: INFLUENZA VIRUS VACCINE 0.5ML SYR IM ONE (08:00)
[2017-08-09] MEDS: FUROSEMIDE 40MG/4ML VIAL IV SCH (09:17)
[2017-08-09] MEDS: AMLODIPINE 5MG TABLET PO SCH ×2 (09:18→21:13)
[2017-08-09] MEDS: ASPIRIN 81MG EC TABLET PO SCH (09:18)
[2017-08-09] MEDS: ENOXAPARIN 40MG/0.4ML SYR SUBCUT SCH (09:18)
[2017-08-09] MEDS: ATENOLOL 50 MG TABLET PO SCH (09:18)
[2017-08-09] MEDS: MONTELUKAST SODIUM 10MG TABLET PO SCH (09:19)
[2017-08-09] MEDS: LOSARTAN POTASSIUM 50 MG TABLET PO SCH (09:19)
[2017-08-09 09:40] LABS: CHLORIDE 103 mEq/L (98-107); HDL CHOLESTEROL 69 mg/dL (40-59); LDL CHOLESTEROL 56 mg/dL (5-100)
[2017-08-09 10:56] LABS: TROPONIN I < 0.02 ng/mL (0.00-0.04)
[2017-08-09 12:00] VITALS: BP 127/83
[2017-08-09 12:15] LABS: CARBON DIOXIDE 23 mEq/L (21-32)
[2017-08-09] MEDS: IPRATROPIUM/ALBUTEROL 0.5-3(2.5)MG/3ML NEB HHN SCH ×2 (15:25→19:46)
[2017-08-09] MEDS ORDERED: IOHEXOL-300 100 ML BOTTLE ONE (15:56)
[2017-08-09 16:00] VITALS: BP 127/58
[2017-08-09] MEDS: DIGOXIN 125MCG TABLET PO SCH (17:33)
[2017-08-09] MEDS: BUDESONIDE 0.5MG/2ML NEB HHN SCH (19:46)
[2017-08-09 20:00] VITALS: BP 155/73
[2017-08-09] MEDS: LEVOFLOXACIN 250MG PREMIX 50 ML IV SCH (21:13)
[2017-08-09] MEDS: ATORVASTATIN CALCIUM 20MG TABLET PO SCH (21:13)
[2017-08-09] MEDS: METHYLPREDNISOLONE SOD SUCC 40 MG/ML VIAL IV SCH (21:24)
[2017-08-10] VITALS: BP 111/58
[2017-08-10] MEDS: IPRATROPIUM/ALBUTEROL 0.5-3(2.5)MG/3ML NEB HHN SCH ×7 (00:13→20:04)
[2017-08-10 04:00] VITALS: BP 136/61
[2017-08-10] MEDS: METHYLPREDNISOLONE SOD SUCC 40 MG/ML VIAL IV SCH ×2 (07:34→18:09)
[2017-08-10] MEDS: BUDESONIDE 0.5MG/2ML NEB HHN SCH ×2 (07:56→20:04)
[2017-08-10 08:00] VITALS: BP 146/68
[2017-08-10] MEDS: ENOXAPARIN 40MG/0.4ML SYR SUBCUT SCH (08:28)
[2017-08-10] MEDS: FUROSEMIDE 40MG/4ML VIAL IV SCH (08:29)
[2017-08-10] MEDS: AMLODIPINE 5MG TABLET PO SCH ×2 (08:29→20:28)
[2017-08-10] MEDS: ATENOLOL 50 MG TABLET PO SCH (08:29)
[2017-08-10] MEDS: LOSARTAN POTASSIUM 50 MG TABLET PO SCH (08:29)
[2017-08-10] MEDS: MONTELUKAST SODIUM 10MG TABLET PO SCH (08:29)
[2017-08-10] MEDS: ASPIRIN 81MG EC TABLET PO SCH (08:29)
[2017-08-10 11:39] VITALS: BP 112/49
[2017-08-10 16:00] VITALS: BP 130/67
[2017-08-10] MEDS: DIGOXIN 125MCG TABLET PO SCH (18:09)
[2017-08-10 20:00] VITALS: BP 132/67
[2017-08-10] MEDS: LEVOFLOXACIN 250MG PREMIX 50 ML IV SCH (20:29)
[2017-08-10] MEDS: ATORVASTATIN CALCIUM 20MG TABLET PO SCH (20:29)
[2017-08-11] VITALS: BP 117/57
[2017-08-11] MEDS: IPRATROPIUM/ALBUTEROL 0.5-3(2.5)MG/3ML NEB HHN SCH ×4 (00:33→12:04)
[2017-08-11 04:00] VITALS: BP 100/59
[2017-08-11 05:52] LABS: BASOPHILS % 0.1 % (0.0-2.0); HEMATOCRIT. 29.6 % (36.0-48.0); LYMPHOCYTES % 8.5 % (20.0-50.0); MEAN CORPUSCULAR HEMOGLOBIN 29.2 pg (28.0-32.0); MEAN CORPUSCULAR VOLUME 86.7 fL (81.0-99.0); MEAN PLATELET VOLUME 8.6 fl (7.4-10.4); MONOCYTES % 4.1 % (2.0-8.0); NEUTROPHILS % 87.3 % (40.0-76.0); PLATELET 205 x1000/uL (130-400); RED BLOOD CELL COUNT 3.42 mill/uL (4.2-5.4); RED CELL DISTRIBUTION WIDTH 14.7 % (11.6-14.6)
[2017-08-11] MEDS: BUDESONIDE 0.5MG/2ML NEB HHN SCH (07:50)
[2017-08-11 07:59] LABS: CARBON DIOXIDE 29 mEq/L (21-32); CHLORIDE 100 mEq/L (98-107)
[2017-08-11 08:00] VITALS: BP 119/52
[2017-08-11] MEDS: METHYLPREDNISOLONE SOD SUCC 40 MG/ML VIAL IV SCH (08:27)
[2017-08-11] MEDS: FUROSEMIDE 40MG/4ML VIAL IV SCH (08:27)
[2017-08-11] MEDS: ENOXAPARIN 40MG/0.4ML SYR SUBCUT SCH (08:28)
[2017-08-11] MEDS: MONTELUKAST SODIUM 10MG TABLET PO SCH (08:28)
[2017-08-11] MEDS: ATENOLOL 50 MG TABLET PO SCH (08:28)
[2017-08-11] MEDS: LOSARTAN POTASSIUM 50 MG TABLET PO SCH (08:28)
[2017-08-11] MEDS: ASPIRIN 81MG EC TABLET PO SCH (08:28)
[2017-08-11] MEDS: AMLODIPINE 5MG TABLET PO SCH (08:29)
[2017-08-11] MEDS: IPRATROPIUM/ALBUTEROL 0.5-3(2.5)MG/3ML NEB INH PRN (10:30)
[2017-08-11] MEDS ORDERED: LEVOFLOXACIN 250MG TABLET PO SCH (11:00)
[2017-08-11 12:00] VITALS: BP 164/89
[2017-08-11 13:45] VITALS: BP 120/65
== END 2017-08-11 14:58 | disposition home or self-care (01) | DRG 177 ==
LOC: ER 15:00 → ENRESERV 19:34 → 8WST 19:40 → EDBEDREQTM 19:42 → EDBEDREQSVC 19:42 → EDBEDREQ 19:42 → ENRESERV 19:51 → 8WST 08-09 01:03
PROVIDERS: ADMIT Internal Medicine; ATTEND Internal Medicine
DX: J69.0 Pneumonitis due to inhalation of food and vomit (principal); J96.00 Acute respiratory failure, unspecified whether with hypoxia or hypercapnia; E46 Unspecified protein-calorie malnutrition; I11.0 Hypertensive heart disease with heart failure; I48.91 Unspecified atrial fibrillation; R65.10 Systemic inflammatory response syndrome (SIRS) of non-infectious origin without acute organ dysfunction; I50.9 Heart failure, unspecified; J44.0 Chronic obstructive pulmonary disease with (acute) lower respiratory infection; J44.1 Chronic obstructive pulmonary disease with (acute) exacerbation; I65.29 Occlusion and stenosis of unspecified carotid artery; R91.8 Other nonspecific abnormal finding of lung field; G89.4 Chronic pain syndrome; I73.9 Peripheral vascular disease, unspecified; E78.5 Hyperlipidemia, unspecified; J20.9 Acute bronchitis, unspecified; D64.9 Anemia, unspecified; Z99.81 Dependence on supplemental oxygen; Z82.49 Family history of ischemic heart disease and other diseases of the circulatory system; Z87.891 Personal history of nicotine dependence; Z88.0 Allergy status to penicillin; Z79.899 Other long term (current) drug therapy; Z79.2 Long term (current) use of antibiotics; Z79.82 Long term (current) use of aspirin; Z68.20 Body mass index [BMI] 20.0-20.9, adult
CPT/HCPCS: 36415; 71010; 71270; 80048; 80053; 80061; 81003; 83605; 83735; 84484; 85025; 85610; 87040; 87086; 87804; 90686; 93005; 94640; 94664; 96365; 96366; 96368; 96375; 99285; J1650; J1940; J1956; J2920; J2930; J3475; J7030; J7060; J7611; J7620; J7626; Q9967

== ENCOUNTER 2018-04-08 10:55 | Emergency (ER) | payer MEDICARE, MEDICAID ==
[~2018-04-08] VITALS: Ht 160 cm; Wt 54.0 kg
[~2018-04-08 10:55] MED LIST changes: -ALBU6.7H3 IH; +ALBU6.7H9 IH
[2018-04-08] MEDS ORDERED: ACETAMINOPHEN WITH CODEINE 300/30MG TABLET PO ONE (12:45)
[2018-04-08] MEDS ORDERED: TETANUS, DIPHTHERIA, PERTUSSIS VAC/PF 0.5ML (>7YR OLD) IM ONE (12:45)
[2018-04-08] MEDS ORDERED: BACITRACIN ZINC OINT UDPKT TOP ONE (12:45)
[2018-04-08] MEDS ORDERED: LIDOCAINE HCL/PF 1% 10 MG/ML 5ML VIAL IJ ONE (12:45)
[2018-04-08 15:34] VITALS: BP 141/73
== END 2018-04-08 15:43 | disposition home or self-care (01) ==
LOC: ER 10:55
DX: L02.414 Cutaneous abscess of left upper limb (principal); I10 Essential (primary) hypertension; Z23 Encounter for immunization
CPT/HCPCS: 10060; 90471; 90715; 99283; J3490

== ENCOUNTER 2018-04-11 13:32 | Emergency (ER) | payer MEDICARE, MEDICAID ==
[~2018-04-11] VITALS: Ht 160 cm; Wt 53.0 kg
[2018-04-11 13:37] VITALS: BP 140/67
== END 2018-04-11 17:17 | disposition left against medical advice (07) ==
LOC: ER 17:13
DX: Z53.21 Procedure and treatment not carried out due to patient leaving prior to being seen by health care provider (principal)

== ENCOUNTER 2018-08-11 23:38 | Emergency (ER) | payer MEDICARE, MEDICAID ==
[~2018-08-11] VITALS: Ht 160 cm; Wt 54.0 kg
[2018-08-12] MEDS ORDERED: ALBUTEROL (0.083%) 2.5MG/3ML NEB HHN STA (00:40)
[2018-08-12] MEDS ORDERED: IPRATROPIUM BROMIDE (0.02%) 0.5MG/2.5ML NEB HHN STA (00:40)
[2018-08-12 01:29] LABS: BASOPHILS % 0.9 % (0.0-2.0); EOSINOPHILS % 3.1 % (0.0-5.0); HEMATOCRIT. 30.4 % (36.0-48.0); HEMOGLOBIN. 9.9 g/dL (12.0-16.0); LYMPHOCYTES % 17.7 % (20.0-50.0); MEAN CORPUSCULAR HEMOGLOBIN 28.9 pg (28.0-32.0); MEAN CORPUSCULAR VOLUME 88.6 fL (81.0-99.0); MEAN PLATELET VOLUME 8.1 fl (7.4-10.4); MONOCYTES % 6.5 % (2.0-8.0); NEUTROPHILS % 71.8 % (40.0-76.0); PLATELET 204 x1000/uL (130-400); RED BLOOD CELL COUNT 3.43 mill/uL (4.2-5.4); RED CELL DISTRIBUTION WIDTH 14.7 % (11.6-14.6)
[2018-08-12 01:32] LABS: CHLORIDE 107 mEq/L (98-107)
[2018-08-12 03:40] VITALS: BP 147/58
== END 2018-08-12 04:54 | disposition home or self-care (01) ==
LOC: ER 23:38
DX: R60.0 Localized edema (principal); R09.89 Other specified symptoms and signs involving the circulatory and respiratory systems; R00.1 Bradycardia, unspecified; I10 Essential (primary) hypertension
CPT/HCPCS: 36415; 71045; 83880; 84484; 93005; 94640; 99284; J7611

== ENCOUNTER 2018-08-31 23:13 | Inpatient (IN) | payer MEDICARE, MEDICAID ==
[~2018-08-31] VITALS: Ht 160 cm; Wt 54.5 kg
[2018-08-31] MEDS ORDERED: ALBUTEROL (0.083%) 2.5MG/3ML NEB HHN STA (23:38)
[2018-08-31] MEDS ORDERED: METHYLPREDNISOLONE SOD SUCC 125 MG/2 ML VIAL IV STA (23:38)
[2018-08-31] MEDS ORDERED: IPRATROPIUM BROMIDE (0.02%) 0.5MG/2.5ML NEB HHN STA (23:38)
[2018-08-31] MEDS ORDERED: MAGNESIUM 2 G PREMIX 50 ML IV STA (23:38)
[2018-09-01] VITALS (11 sets, daily range): BP systolic 109–158; BP diastolic 65–88
[2018-09-01 00:05] LABS: HEMATOCRIT 36.9 % (36.0-48.0); HEMOGLOBIN 11.9 g/dL (12.0-16.0); MEAN CORPUSCULAR HEMOGLOBIN 28.8 pg (28.0-32.0); MEAN CORPUSCULAR VOLUME 89.4 fL (81.0-99.0); PLATELET 265 x1000/uL (130-400); RED BLOOD CELL COUNT 4.13 mill/uL (4.2-5.4)
[2018-09-01 00:09] LABS: CHLORIDE 110 mEq/L (98-107)
[2018-09-01] MEDS ORDERED: FUROSEMIDE 40MG/4ML VIAL IVP ONE (00:15)
[2018-09-01] MEDS ORDERED: NITROGLYCERIN 50MG PREMIX 250 ML IV ONE (00:15)
[2018-09-01] MEDS ORDERED: CLONIDINE 0.1MG TABLET PO PRN (07:45)
[2018-09-01] MEDS ORDERED: HYDROCODONE/ACETAMINOPHEN 5/325MG TABLET PO PRN (07:45)
[2018-09-01] MEDS ORDERED: IPRATROPIUM/ALBUTEROL 0.5-3(2.5)MG/3ML NEB INH PRN (07:45)
[2018-09-01] MEDS ORDERED: ONDANSETRON HCL 4MG/2ML INJ IV PRN (07:45)
[2018-09-01] MEDS ORDERED: DOCUSATE SODIUM 100MG CAPSULE PO PRN (07:45)
[2018-09-01] MEDS ORDERED: ACETAMINOPHEN 325MG TABLET PO PRN (07:45)
[2018-09-01 10:36] LABS: PHOSPHORUS 3.5 mg/dL (2.5-4.9)
[2018-09-01 11:38] LABS: CLARITY URINE CLEAR (CLEAR); COLOR URINE YELLOW (YELLOW); KETONES URINE NEGATIVE (NEGATIVE); LEUKOCYTE ESTERASE URINE NEGATIVE (NEGATIVE); NITRITE URINE NEGATIVE (NEGATIVE); OCCULT BLOOD URINE 2+ (NEGATIVE); PH URINE 5.5 (4.5-8.0); PROTEIN URINE NEGATIVE (NEGATIVE); SPECIFIC GRAVITY URINE 1.017 (1.005-1.030); UROBILINOGEN URINE 0.2 E.U./dL (0.2-1.0)
[2018-09-01 12:40] LABS: *AMPHETAMINES SCREEN URINE NEGATIVE (NEGATIVE); *BARBITURATES SCREEN URINE NEGATIVE (NEGATIVE)
[2018-09-01 12:41] LABS: *BENZODIAZEPINES SCREEN URINE NEGATIVE (NEGATIVE); CANNABINOID URINE SCREEN NEGATIVE (NEGATIVE); OPIATES URINE SCREEN PRESUMTIVE POSITIVE (NEGATIVE)
[2018-09-01 12:42] LABS: *COCAINE SCREEN URINE PRESUMTIVE POSITIVE (NEGATIVE); PHENCYCLIDINE URINE SCREEN NEGATIVE (NEGATIVE)
[2018-09-01 12:55] LABS: METHADONE URINE SCREEN PRESUMTIVE POSITIVE (NEGATIVE)
[2018-09-01] MEDS ORDERED: IPRATROPIUM/ALBUTEROL 0.5-3(2.5)MG/3ML NEB HHN PRN (14:30)
[2018-09-01 14:44] LABS: BG BASE EXCESS -0.7 mmol/L (-2.0-2.0); BG CARBOXYHEMOGLOBIN 0.2 % (0.5-1.5); BG DEOXYHEMOGLOBIN 8.3 % (0.0-5.0); BG FRACTION INSPIRED OXYGEN 28; BG HCO3 ACT 23.1 mmol/L (22.0-26.0); BG OXYGEN SATURATION 91.7 % (92.0-98.5); BG OXYHEMOGLOBIN 91.5 % (94.0-97.0); BG PCO2 35.4 mmHg (35.0-45.0); BG PH 7.433 (7.350-7.450); BG PO2 66.8 mmHg (75.0-100.0); BG SAMPLE SITE RIGHT RADIAL; BG TOTAL HEMOGLOBIN 11.5 g/dL (12.0-18.0); BG VENT MODE NASAL CANNULA
[2018-09-01] MEDS: ENOXAPARIN 30MG/0.3ML SYR SUBCUT SCH (14:48)
[2018-09-01] MEDS: HYDROCODONE/ACETAMINOPHEN 10/325MG TABLET PO PRN ×2 (14:49→18:49)
[2018-09-01] MEDS: METHYLPREDNISOLONE SOD SUCC 40 MG/ML VIAL IV SCH ×2 (14:58→23:07)
[2018-09-01] MEDS ORDERED: LEVOFLOXACIN 500MG PREMIX 100 ML IV SCH (15:00)
[2018-09-01] MEDS: IPRATROPIUM/ALBUTEROL 0.5-3(2.5)MG/3ML NEB HHN SCH (16:18)
[2018-09-01] MEDS ORDERED: DIGOXIN 125MCG TABLET PO SCH (18:00)
[2018-09-01] MEDS: ATORVASTATIN CALCIUM 20MG TABLET PO SCH (21:14)
[2018-09-02] VITALS (10 sets, daily range): BP systolic 98–150; BP diastolic 49–99
[2018-09-02] MEDS: IPRATROPIUM/ALBUTEROL 0.5-3(2.5)MG/3ML NEB HHN SCH ×7 (00:49→23:56)
[2018-09-02] MEDS: HYDROCODONE/ACETAMINOPHEN 10/325MG TABLET PO PRN ×3 (01:52→21:53)
[2018-09-02 05:33] LABS: BASOPHILS % 0.1 % (0.0-2.0); HEMATOCRIT. 31.8 % (36.0-48.0); HEMOGLOBIN. 10.3 g/dL (12.0-16.0); LYMPHOCYTES % 9.8 % (20.0-50.0); MEAN CORPUSCULAR HEMOGLOBIN 28.5 pg (28.0-32.0); MEAN CORPUSCULAR VOLUME 88.2 fL (81.0-99.0); MEAN PLATELET VOLUME 8.5 fl (7.4-10.4); MONOCYTES % 1.9 % (2.0-8.0); NEUTROPHILS % 88.2 % (40.0-76.0); PLATELET 205 x1000/uL (130-400); RED BLOOD CELL COUNT 3.61 mill/uL (4.2-5.4); RED CELL DISTRIBUTION WIDTH 14.6 % (11.6-14.6)
[2018-09-02 06:22] LABS: DIGOXIN 1.3 ng/mL (0.9-2.0)
[2018-09-02] MEDS: METHYLPREDNISOLONE SOD SUCC 40 MG/ML VIAL IV SCH ×2 (07:04→14:32)
[2018-09-02] MEDS: LOSARTAN POTASSIUM 50 MG TABLET PO SCH (09:59)
[2018-09-02] MEDS: ASPIRIN 81MG TABLET PO SCH (09:59)
[2018-09-02] MEDS: AMLODIPINE 5MG TABLET PO SCH (10:00)
[2018-09-02] MEDS: ENOXAPARIN 30MG/0.3ML SYR SUBCUT SCH (14:32)
[2018-09-02] MEDS: LEVOFLOXACIN 250MG PREMIX 50 ML IV SCH (16:25)
[2018-09-02] MEDS: PREDNISONE 20MG TABLET PO SCH (17:16)
[2018-09-02] MEDS: ATORVASTATIN CALCIUM 20MG TABLET PO SCH (21:51)
[2018-09-03] VITALS (12 sets, daily range): BP systolic 91–146; BP diastolic 52–94
[2018-09-03] MEDS: IPRATROPIUM/ALBUTEROL 0.5-3(2.5)MG/3ML NEB HHN SCH ×6 (04:16→21:19)
[2018-09-03] MEDS: HYDROCODONE/ACETAMINOPHEN 10/325MG TABLET PO PRN ×2 (04:35→12:13)
[2018-09-03 05:56] LABS: BASOPHILS % 0.1 % (0.0-2.0); HEMATOCRIT. 31.7 % (36.0-48.0); HEMOGLOBIN. 10.4 g/dL (12.0-16.0); LYMPHOCYTES % 11.6 % (20.0-50.0); MEAN CORPUSCULAR HEMOGLOBIN 29.1 pg (28.0-32.0); MEAN CORPUSCULAR VOLUME 88.6 fL (81.0-99.0); MEAN PLATELET VOLUME 8.7 fl (7.4-10.4); MONOCYTES % 2.3 % (2.0-8.0); PLATELET 212 x1000/uL (130-400); RED BLOOD CELL COUNT 3.58 mill/uL (4.2-5.4); RED CELL DISTRIBUTION WIDTH 15.1 % (11.6-14.6)
[2018-09-03] MEDS: AMLODIPINE 5MG TABLET PO SCH (09:09)
[2018-09-03] MEDS: LOSARTAN POTASSIUM 50 MG TABLET PO SCH (09:09)
[2018-09-03] MEDS: ASPIRIN 81MG TABLET PO SCH (09:09)
[2018-09-03] MEDS: PREDNISONE 20MG TABLET PO SCH (09:10)
[2018-09-03] MEDS ORDERED: PREDNISONE 20MG TABLET PO SCH (12:00)
[2018-09-03] MEDS: ENOXAPARIN 30MG/0.3ML SYR SUBCUT SCH (14:42)
[2018-09-03] MEDS: LEVOFLOXACIN 250MG PREMIX 50 ML IV SCH (18:21)
[2018-09-03] MEDS: ATORVASTATIN CALCIUM 20MG TABLET PO SCH (20:50)
[2018-09-04] VITALS (12 sets, daily range): BP systolic 105–157; BP diastolic 54–85
[2018-09-04] MEDS: IPRATROPIUM/ALBUTEROL 0.5-3(2.5)MG/3ML NEB HHN SCH ×7 (00:13→23:43)
[2018-09-04 06:36] LABS: BASOPHILS % 0.1 % (0.0-2.0); HEMATOCRIT. 32.5 % (36.0-48.0); HEMOGLOBIN. 10.5 g/dL (12.0-16.0); MEAN CORPUSCULAR HEMOGLOBIN 28.9 pg (28.0-32.0); MEAN CORPUSCULAR VOLUME 89.5 fL (81.0-99.0); MEAN PLATELET VOLUME 8.7 fl (7.4-10.4); MONOCYTES % 5.3 % (2.0-8.0); NEUTROPHILS % 79.6 % (40.0-76.0); PLATELET 228 x1000/uL (130-400); RED BLOOD CELL COUNT 3.63 mill/uL (4.2-5.4); RED CELL DISTRIBUTION WIDTH 15.1 % (11.6-14.6)
[2018-09-04] MEDS ORDERED: PREDNISONE 20MG TABLET PO SCH (09:00)
[2018-09-04] MEDS: ASPIRIN 81MG TABLET PO SCH (10:02)
[2018-09-04] MEDS: LOSARTAN POTASSIUM 50 MG TABLET PO SCH (10:02)
[2018-09-04] MEDS: AMLODIPINE 5MG TABLET PO SCH (10:02)
[2018-09-04] MEDS: HYDROCODONE/ACETAMINOPHEN 10/325MG TABLET PO PRN ×3 (10:03→20:58)
[2018-09-04] MEDS: ENOXAPARIN 30MG/0.3ML SYR SUBCUT SCH (14:41)
[2018-09-04] MEDS: LEVOFLOXACIN 250MG PREMIX 50 ML IV SCH (14:42)
[2018-09-04] MEDS: ATORVASTATIN CALCIUM 20MG TABLET PO SCH (20:52)
[2018-09-05] VITALS (10 sets, daily range): BP systolic 105–149; BP diastolic 63–77
[2018-09-05] MEDS: HYDROCODONE/ACETAMINOPHEN 10/325MG TABLET PO PRN ×2 (00:55→09:00)
[2018-09-05] MEDS: IPRATROPIUM/ALBUTEROL 0.5-3(2.5)MG/3ML NEB HHN SCH ×3 (04:03→12:51)
[2018-09-05 06:36] LABS: BASOPHILS % 0.5 % (0.0-2.0); EOSINOPHILS % 0.2 % (0.0-5.0); HEMATOCRIT. 29.8 % (36.0-48.0); HEMOGLOBIN. 9.9 g/dL (12.0-16.0); LYMPHOCYTES % 17.8 % (20.0-50.0); MEAN CORPUSCULAR HEMOGLOBIN 29.4 pg (28.0-32.0); MEAN CORPUSCULAR VOLUME 88.9 fL (81.0-99.0); MONOCYTES % 5.3 % (2.0-8.0); NEUTROPHILS % 76.2 % (40.0-76.0); PLATELET 195 x1000/uL (130-400); RED BLOOD CELL COUNT 3.35 mill/uL (4.2-5.4); RED CELL DISTRIBUTION WIDTH 14.7 % (11.6-14.6)
[2018-09-05 07:41] LABS: PHOSPHORUS 3.3 mg/dL (2.5-4.9)
[2018-09-05] MEDS: LOSARTAN POTASSIUM 50 MG TABLET PO SCH (08:38)
[2018-09-05] MEDS: AMLODIPINE 5MG TABLET PO SCH (08:38)
[2018-09-05] MEDS: ASPIRIN 81MG TABLET PO SCH (08:38)
[2018-09-05] MEDS: ENOXAPARIN 30MG/0.3ML SYR SUBCUT SCH (14:00)
[2018-09-05] MEDS: LEVOFLOXACIN 250MG PREMIX 50 ML IV SCH (14:29)
[2018-09-06] MEDS ORDERED: LEVOFLOXACIN 250MG TABLET PO SCH (11:00)
[2018-09-07 10:44] LABS: A/G RATIO 0.8 (0.7-1.7); ALBUMIN 3.1 g/dL (2.9-4.4); ALPHA-1-GLOBULIN 0.2 g/dL (0.0-0.4); ALPHA-2-GLOBULIN 0.8 g/dL (0.4-1.0); BETA GLOBULIN 1.3 g/dL (0.7-1.3); GAMMA GLOBULINS 1.3 g/dL (0.4-1.8); GLOBULIN TOTAL 3.7 g/dL (2.2-3.9); M-SPIKE Not Observed g/dL (Not Observed); TOTAL PROTEIN SERUM 6.8 g/dL (6.0-8.5)
== END 2018-09-05 16:10 | disposition home or self-care (01) | DRG 917 ==
LOC: ER 23:13 → 5EST 09-01 00:35 → ENRESERV 09-01 01:21
PROVIDERS: ADMIT Internal Medicine; ATTEND Internal Medicine
PROC: 5A09357 Assistance with Respiratory Ventilation, Less than 24 Consecutive Hours, Continuous Positive Airway Pressure (ICD-10-PCS; principal; 2018-08-31)
PROC: 5A09357 Assistance with Respiratory Ventilation, Less than 24 Consecutive Hours, Continuous Positive Airway Pressure (ICD-10-PCS; 2018-09-02)
PROC: 5A09357 Assistance with Respiratory Ventilation, Less than 24 Consecutive Hours, Continuous Positive Airway Pressure (ICD-10-PCS; 2018-09-03)
DX: T40.5X1A Poisoning by cocaine, accidental (unintentional), initial encounter (principal); I50.43 Acute on chronic combined systolic (congestive) and diastolic (congestive) heart failure; J96.21 Acute and chronic respiratory failure with hypoxia; J44.1 Chronic obstructive pulmonary disease with (acute) exacerbation; F11.20 Opioid dependence, uncomplicated; I13.0 Hypertensive heart and chronic kidney disease with heart failure and stage 1 through stage 4 chronic kidney disease, or unspecified chronic kidney disease; J68.0 Bronchitis and pneumonitis due to chemicals, gases, fumes and vapors; N17.9 Acute kidney failure, unspecified; I16.1 Hypertensive emergency; R31.9 Hematuria, unspecified; D64.9 Anemia, unspecified; E78.5 Hyperlipidemia, unspecified; F14.129 Cocaine abuse with intoxication, unspecified; N18.2 Chronic kidney disease, stage 2 (mild); R79.1 Abnormal coagulation profile; Z79.82 Long term (current) use of aspirin; Z79.899 Other long term (current) drug therapy; Z82.49 Family history of ischemic heart disease and other diseases of the circulatory system; Z86.73 Personal history of transient ischemic attack (TIA), and cerebral infarction without residual deficits; Z87.891 Personal history of nicotine dependence; Z91.14 Patient's other noncompliance with medication regimen; Z99.81 Dependence on supplemental oxygen; Y92.89 Other specified places as the place of occurrence of the external cause; Z88.0 Allergy status to penicillin
CPT/HCPCS: 36415; 36600; 71045; 76770; 80048; 80061; 80076; 80162; 80305; 82375; 82550; 82805; 83036; 83735; 83880; 84100; 84145; 84155; 84165; 84443; 84484; 85027; 85379; 87804; 93306; 93970; 94640; 94644; 94660; 96365; 96375; 97162; 99291; J1650; J1940; J1956; J2920; J2930; J3475; J3490; J7050; J7512; J7611; J7620

== ENCOUNTER 2018-09-13 15:56 | Inpatient (IN) | payer MEDICARE, MEDICAID ==
[~2018-09-13] VITALS: Ht 160 cm; Wt 94.3 kg
[2018-09-13] MEDS ORDERED: METHYLPREDNISOLONE SOD SUCC 125 MG/2 ML VIAL IV STA (16:41)
[2018-09-13 17:34] LABS: BASOPHILS % 0.6 % (0.0-2.0); EOSINOPHILS % 1.4 % (0.0-5.0); HEMOGLOBIN. 10.3 g/dL (12.0-16.0); LYMPHOCYTES % 8.5 % (20.0-50.0); MEAN CORPUSCULAR HEMOGLOBIN 28.8 pg (28.0-32.0); MEAN CORPUSCULAR VOLUME 89.4 fL (81.0-99.0); MEAN PLATELET VOLUME 8.9 fl (7.4-10.4); MONOCYTES % 6.7 % (2.0-8.0); NEUTROPHILS % 82.8 % (40.0-76.0); PLATELET 201 x1000/uL (130-400); RED BLOOD CELL COUNT 3.58 mill/uL (4.2-5.4); RED CELL DISTRIBUTION WIDTH 15.1 % (11.6-14.6)
[2018-09-13 17:38] LABS: CHLORIDE 104 mEq/L (98-107)
[2018-09-13] MEDS: ALBUTEROL (0.083%) 2.5MG/3ML NEB HHN STA ×2 (17:40→18:43)
[2018-09-13] MEDS ORDERED: HYDROCODONE/ACETAMINOPHEN 5/325MG TABLET PO PRN (20:00)
[2018-09-13] MEDS ORDERED: NA PHOS,M-B/NA PHOS,DI-BA ENEMA 118ML PR PRN (20:00)
[2018-09-13] MEDS ORDERED: GUAIFENESIN 200MG/10ML SUGAR FREE UDC PO PRN (20:00)
[2018-09-13] MEDS ORDERED: LORAZEPAM 2MG/ML CPJ IV PRN (20:00)
[2018-09-13] MEDS ORDERED: ONDANSETRON HCL 4MG/2ML INJ IV PRN (20:00)
[2018-09-13] MEDS ORDERED: MAGNESIUM/ALUMINUM HYDROXIDE/SIMETHICONE 30ML UDC PO PRN (20:00)
[2018-09-13] MEDS ORDERED: CLONIDINE 0.1MG TABLET PO PRN (20:00)
[2018-09-13 21:00] VITALS: BP 164/71
[2018-09-13] MEDS ORDERED: LOSA50TA20 PO (21:52)
[2018-09-13] MEDS ORDERED: AMLO10TA80 PO (21:52)
[2018-09-13] MEDS ORDERED: ATOR20TA65 PO (21:52)
[2018-09-13] MEDS ORDERED: DIGO125T82 PO (21:52)
[2018-09-13] MEDS ORDERED: ATEN50TA PO (21:52)
[2018-09-13] MEDS ORDERED: FURO20TA4 PO (21:52)
[2018-09-13] MEDS: MORPHINE SULFATE 4 MG/ML CPJ (NOT FOR IM USE) IV PRN (23:02)
[2018-09-13] MEDS: DOCUSATE SODIUM 100MG CAPSULE PO PRN (23:02)
[2018-09-13] MEDS: METHYLPREDNISOLONE SOD SUCC 125 MG/2 ML VIAL IV SCH (23:49)
[2018-09-14] VITALS: BP 97/50
[2018-09-14] MEDS ORDERED: LEVOFLOXACIN 500MG PREMIX 100 ML IV SCH
[2018-09-14 01:43] LABS: CHLORIDE 106 mEq/L (98-107)
[2018-09-14] MEDS: IPRATROPIUM/ALBUTEROL 0.5-3(2.5)MG/3ML NEB INH PRN ×6 (02:13→23:32)
[2018-09-14 04:00] VITALS: BP 107/55
[2018-09-14] MEDS: METHYLPREDNISOLONE SOD SUCC 125 MG/2 ML VIAL IV SCH ×2 (06:08→11:24)
[2018-09-14 08:00] VITALS: BP_SYST 136; BP_SYST 176; BP_DIAS 47; BP_DIAS 65
[2018-09-14] MEDS: ENOXAPARIN 40MG/0.4ML SYR SUBCUT SCH (09:01)
[2018-09-14] MEDS: ASPIRIN 81MG EC TABLET PO SCH (09:02)
[2018-09-14 11:02] LABS: BASOPHILS % 0.1 % (0.0-2.0); HEMATOCRIT. 30.5 % (36.0-48.0); HEMOGLOBIN. 9.9 g/dL (12.0-16.0); LYMPHOCYTES % 10.5 % (20.0-50.0); MEAN CORPUSCULAR VOLUME 89.2 fL (81.0-99.0); MEAN PLATELET VOLUME 8.4 fl (7.4-10.4); MONOCYTES % 1.4 % (2.0-8.0); PLATELET 175 x1000/uL (130-400); RED BLOOD CELL COUNT 3.42 mill/uL (4.2-5.4); RED CELL DISTRIBUTION WIDTH 14.8 % (11.6-14.6)
[2018-09-14] MEDS: HYDROCODONE/ACETAMINOPHEN 10/325MG TABLET PO PRN ×2 (11:24→17:08)
[2018-09-14 12:00] VITALS: BP 120/71
[2018-09-14 12:23] LABS: CHLORIDE 104 mEq/L (98-107)
[2018-09-14 12:31] LABS: LDL CHOLESTEROL 42 mg/dL (5-100)
[2018-09-14 12:33] LABS: HDL CHOLESTEROL 75 mg/dL (40-59); T4 FREE 1.17 ng/dL (0.76-1.46)
[2018-09-14 16:00] VITALS: BP 96/51
[2018-09-14] MEDS: METHYLPREDNISOLONE SOD SUCC 40 MG/ML VIAL IV SCH (17:06)
[2018-09-14 17:18] LABS: CREATINE KINASE MB FRACTION 1.8 ng/mL (0.5-3.6)
[2018-09-14 20:00] VITALS: BP 111/57
[2018-09-14] MEDS: GUAIFENESIN 600MG ER TABLET PO SCH (20:47)
[2018-09-14] MEDS: ATORVASTATIN CALCIUM 20MG TABLET PO SCH (20:47)
[2018-09-14 22:22] LABS: *AMPHETAMINES SCREEN URINE NEGATIVE (NEGATIVE); *BARBITURATES SCREEN URINE NEGATIVE (NEGATIVE); *BENZODIAZEPINES SCREEN URINE NEGATIVE (NEGATIVE)
[2018-09-14 22:23] LABS: *COCAINE SCREEN URINE NEGATIVE (NEGATIVE); OPIATES URINE SCREEN PRESUMTIVE POSITIVE (NEGATIVE); PHENCYCLIDINE URINE SCREEN NEGATIVE (NEGATIVE)
[2018-09-14 22:33] LABS: CANNABINOID URINE SCREEN NEGATIVE (NEGATIVE)
[2018-09-14 22:38] LABS: METHADONE URINE SCREEN PRESUMTIVE POSITIVE (NEGATIVE)
[2018-09-15] VITALS: BP 107/67
[2018-09-15] MEDS: LEVOFLOXACIN 250MG PREMIX 50 ML IV SCH ×2 (00:39→23:52)
[2018-09-15 04:00] VITALS: BP 108/68
[2018-09-15] MEDS: IPRATROPIUM/ALBUTEROL 0.5-3(2.5)MG/3ML NEB INH PRN ×6 (04:02→19:45)
[2018-09-15 08:00] VITALS: BP 99/39
[2018-09-15 08:03] LABS: BASOPHILS % 0.1 % (0.0-2.0); HEMATOCRIT. 28.8 % (36.0-48.0); HEMOGLOBIN. 9.5 g/dL (12.0-16.0); LYMPHOCYTES % 8.6 % (20.0-50.0); MEAN CORPUSCULAR HEMOGLOBIN 29.3 pg (28.0-32.0); MEAN CORPUSCULAR VOLUME 88.5 fL (81.0-99.0); MEAN PLATELET VOLUME 8.4 fl (7.4-10.4); MONOCYTES % 6.2 % (2.0-8.0); NEUTROPHILS % 85.1 % (40.0-76.0); PLATELET 192 x1000/uL (130-400); RED BLOOD CELL COUNT 3.25 mill/uL (4.2-5.4); RED CELL DISTRIBUTION WIDTH 14.8 % (11.6-14.6)
[2018-09-15 08:41] LABS: DIGOXIN 1.1 ng/mL (0.9-2.0)
[2018-09-15] MEDS: AMLODIPINE 10MG TABLET PO SCH (09:00)
[2018-09-15] MEDS ORDERED: MEDICATION NOT ON FORMULARY EA (Atenolol 50 MG) PO SCH (09:00)
[2018-09-15] MEDS: ATENOLOL 50 MG TABLET PO SCH (09:00)
[2018-09-15] MEDS: LOSARTAN POTASSIUM 50 MG TABLET PO SCH (09:00)
[2018-09-15] MEDS ORDERED: MEDICATION NOT ON FORMULARY EA (Aspirin (Aspirin Ec) 81 MG) PO SCH (09:00)
[2018-09-15] MEDS ORDERED: MEDICATION NOT ON FORMULARY EA (Losartan Potassium 50 MG) PO SCH (09:00)
[2018-09-15] MEDS ORDERED: MEDICATION NOT ON FORMULARY EA (Furosemide 20 MG) PO SCH (09:00)
[2018-09-15] MEDS: METHYLPREDNISOLONE SOD SUCC 40 MG/ML VIAL IV SCH ×2 (09:17→19:15)
[2018-09-15] MEDS: ENOXAPARIN 40MG/0.4ML SYR SUBCUT SCH (09:17)
[2018-09-15] MEDS: ASPIRIN 81MG EC TABLET PO SCH (09:23)
[2018-09-15] MEDS: FUROSEMIDE 20MG TABLET PO SCH (09:23)
[2018-09-15] MEDS: GUAIFENESIN 600MG ER TABLET PO SCH ×2 (09:23→20:29)
[2018-09-15] MEDS: MORPHINE SULFATE 4 MG/ML CPJ (NOT FOR IM USE) IV PRN (09:46)
[2018-09-15 12:00] VITALS: BP 116/57
[2018-09-15] MEDS ORDERED: TERBUTALINE SULFATE 1MG/ML VIAL SUBCUT SCH (13:45)
[2018-09-15] MEDS: DOCUSATE SODIUM 100MG CAPSULE PO PRN (13:47)
[2018-09-15 16:00] VITALS: BP 101/61
[2018-09-15] MEDS: DIGOXIN 125MCG TABLET PO SCH (19:12)
[2018-09-15 20:00] VITALS: BP_SYST 111; BP_SYST 112; BP_DIAS 61; BP_DIAS 64
[2018-09-15] MEDS: ATORVASTATIN CALCIUM 20MG TABLET PO SCH (20:29)
[2018-09-15] MEDS: HYDROCODONE/ACETAMINOPHEN 10/325MG TABLET PO PRN (22:07)
[2018-09-16] VITALS: BP 111/61
[2018-09-16] MEDS: IPRATROPIUM/ALBUTEROL 0.5-3(2.5)MG/3ML NEB HHN SCH ×5 (01:32→23:56)
[2018-09-16 04:00] VITALS: BP 126/79
[2018-09-16 08:00] VITALS: BP 116/74
[2018-09-16] MEDS: MORPHINE SULFATE 4 MG/ML CPJ (NOT FOR IM USE) IV PRN ×3 (08:42→21:41)
[2018-09-16] MEDS: ASPIRIN 81MG EC TABLET PO SCH (08:46)
[2018-09-16] MEDS: FUROSEMIDE 20MG TABLET PO SCH (08:46)
[2018-09-16] MEDS: ENOXAPARIN 30MG/0.3ML SYR SUBCUT SCH (08:46)
[2018-09-16] MEDS: AMLODIPINE 10MG TABLET PO SCH (08:46)
[2018-09-16] MEDS: METHYLPREDNISOLONE SOD SUCC 40 MG/ML VIAL IV SCH ×2 (08:46→17:58)
[2018-09-16] MEDS: LOSARTAN POTASSIUM 50 MG TABLET PO SCH (08:46)
[2018-09-16] MEDS: GUAIFENESIN 600MG ER TABLET PO SCH ×2 (08:47→21:40)
[2018-09-16] MEDS: ATENOLOL 50 MG TABLET PO SCH (08:48)
[2018-09-16 12:00] VITALS: BP 125/60
[2018-09-16 16:00] VITALS: BP 127/61
[2018-09-16] MEDS: HYDROCODONE/ACETAMINOPHEN 10/325MG TABLET PO PRN (16:43)
[2018-09-16] MEDS ORDERED: TERBUTALINE SULFATE 1MG/ML VIAL SUBCUT NR (16:45)
[2018-09-16] MEDS: BENZONATATE 100MG CAPSULE PO SCH (17:58)
[2018-09-16] MEDS: DIGOXIN 125MCG TABLET PO SCH (17:58)
[2018-09-16] MEDS: ATORVASTATIN CALCIUM 20MG TABLET PO SCH (21:40)
[2018-09-16] MEDS: DIPHENHYDRAMINE 50MG/ML VIAL IV PRN (21:41)
[2018-09-17] MEDS: BENZONATATE 100MG CAPSULE PO SCH ×4 (00:19→20:43)
[2018-09-17] MEDS: LEVOFLOXACIN 250MG PREMIX 50 ML IV SCH ×2 (00:19→23:40)
[2018-09-17 00:31] VITALS: BP 116/73
[2018-09-17 04:00] VITALS: BP 166/66
[2018-09-17] MEDS: IPRATROPIUM/ALBUTEROL 0.5-3(2.5)MG/3ML NEB HHN SCH ×5 (05:04→20:18)
[2018-09-17] MEDS: MORPHINE SULFATE 4 MG/ML CPJ (NOT FOR IM USE) IV PRN (06:02)
[2018-09-17 08:00] VITALS: BP 92/56
[2018-09-17] MEDS: FUROSEMIDE 20MG TABLET PO SCH (08:20)
[2018-09-17] MEDS: ATENOLOL 50 MG TABLET PO SCH (08:20)
[2018-09-17] MEDS: METHYLPREDNISOLONE SOD SUCC 40 MG/ML VIAL IV SCH ×2 (08:20→17:52)
[2018-09-17] MEDS: AMLODIPINE 10MG TABLET PO SCH (08:20)
[2018-09-17] MEDS: ENOXAPARIN 30MG/0.3ML SYR SUBCUT SCH (08:20)
[2018-09-17] MEDS: LOSARTAN POTASSIUM 50 MG TABLET PO SCH (08:20)
[2018-09-17] MEDS: GUAIFENESIN 600MG ER TABLET PO SCH ×2 (08:20→20:43)
[2018-09-17] MEDS: ASPIRIN 81MG EC TABLET PO SCH (08:20)
[2018-09-17] MEDS: DIGOXIN 125MCG TABLET PO SCH (17:53)
[2018-09-17] MEDS: HYDROCODONE/ACETAMINOPHEN 10/325MG TABLET PO PRN ×2 (17:57→23:38)
[2018-09-17] MEDS: IPRATROPIUM/ALBUTEROL 0.5-3(2.5)MG/3ML NEB INH PRN ×2 (18:50→21:58)
[2018-09-17 20:00] VITALS: BP 116/57
[2018-09-17] MEDS: ATORVASTATIN CALCIUM 20MG TABLET PO SCH (20:43)
[2018-09-18] VITALS (7 sets, daily range): BP systolic 110–167; BP diastolic 56–92
[2018-09-18] MEDS: IPRATROPIUM/ALBUTEROL 0.5-3(2.5)MG/3ML NEB HHN SCH ×6 (00:58→20:07)
[2018-09-18] MEDS: HYDROCODONE/ACETAMINOPHEN 10/325MG TABLET PO PRN ×3 (05:32→21:56)
[2018-09-18] MEDS: BENZONATATE 100MG CAPSULE PO SCH ×3 (05:32→21:19)
[2018-09-18] MEDS: ENOXAPARIN 30MG/0.3ML SYR SUBCUT SCH (08:48)
[2018-09-18] MEDS: METHYLPREDNISOLONE SOD SUCC 40 MG/ML VIAL IV SCH ×2 (08:49→18:47)
[2018-09-18] MEDS: ASPIRIN 81MG EC TABLET PO SCH (08:49)
[2018-09-18] MEDS: FUROSEMIDE 20MG TABLET PO SCH (08:49)
[2018-09-18] MEDS: AMLODIPINE 10MG TABLET PO SCH (08:50)
[2018-09-18] MEDS: LOSARTAN POTASSIUM 50 MG TABLET PO SCH (08:50)
[2018-09-18] MEDS: GUAIFENESIN 600MG ER TABLET PO SCH ×2 (08:53→21:19)
[2018-09-18] MEDS: ATENOLOL 50 MG TABLET PO SCH (08:53)
[2018-09-18] MEDS: DIGOXIN 125MCG TABLET PO SCH (18:47)
[2018-09-18] MEDS: ATORVASTATIN CALCIUM 20MG TABLET PO SCH (21:19)
[2018-09-18] MEDS: LEVOFLOXACIN 250MG PREMIX 50 ML IV SCH (23:17)
[2018-09-18] MEDS: ACETAMINOPHEN 325MG TABLET PO PRN (23:58)
[2018-09-19] VITALS (7 sets, daily range): BP systolic 128–146; BP diastolic 61–76
[2018-09-19] MEDS: IPRATROPIUM/ALBUTEROL 0.5-3(2.5)MG/3ML NEB HHN SCH ×5 (00:24→16:31)
[2018-09-19] MEDS: DIPHENHYDRAMINE 50MG/ML VIAL IV PRN (02:06)
[2018-09-19] MEDS: HYDROCODONE/ACETAMINOPHEN 10/325MG TABLET PO PRN (05:11)
[2018-09-19] MEDS: BENZONATATE 100MG CAPSULE PO SCH ×2 (05:11→13:53)
[2018-09-19] MEDS: FUROSEMIDE 20MG TABLET PO SCH (09:02)
[2018-09-19] MEDS: LOSARTAN POTASSIUM 50 MG TABLET PO SCH (09:02)
[2018-09-19] MEDS: METHYLPREDNISOLONE SOD SUCC 40 MG/ML VIAL IV SCH ×2 (09:02→16:53)
[2018-09-19] MEDS: ATENOLOL 50 MG TABLET PO SCH (09:02)
[2018-09-19] MEDS: AMLODIPINE 10MG TABLET PO SCH (09:03)
[2018-09-19] MEDS: GUAIFENESIN 600MG ER TABLET PO SCH (09:03)
[2018-09-19] MEDS: ASPIRIN 81MG EC TABLET PO SCH (09:03)
[2018-09-19] MEDS: ENOXAPARIN 30MG/0.3ML SYR SUBCUT SCH (09:04)
[2018-09-19] MEDS: ACETAMINOPHEN 325MG TABLET PO PRN (15:24)
[2018-09-19] MEDS: DIGOXIN 125MCG TABLET PO SCH (16:53)
[2018-09-19] MEDS ORDERED: LEVOFLOXACIN 250MG TABLET PO SCH (21:00)
== END 2018-09-19 18:14 | disposition home health service (06) | DRG 177 ==
LOC: EDBEDREQ 18:31 → EDBEDREQTM 18:31 → ENRESERV 20:14 → ER 22:12 → 7WST 22:36
PROVIDERS: ADMIT Internal Medicine; ATTEND Internal Medicine
DX: J69.0 Pneumonitis due to inhalation of food and vomit (principal); J96.00 Acute respiratory failure, unspecified whether with hypoxia or hypercapnia; N17.0 Acute kidney failure with tubular necrosis; I50.32 Chronic diastolic (congestive) heart failure; J44.1 Chronic obstructive pulmonary disease with (acute) exacerbation; J98.11 Atelectasis; I11.0 Hypertensive heart disease with heart failure; I25.10 Atherosclerotic heart disease of native coronary artery without angina pectoris; F14.10 Cocaine abuse, uncomplicated; N28.9 Disorder of kidney and ureter, unspecified; Z79.82 Long term (current) use of aspirin; Z82.49 Family history of ischemic heart disease and other diseases of the circulatory system; Z87.891 Personal history of nicotine dependence; Z91.19 Patient's noncompliance with other medical treatment and regimen; Z99.81 Dependence on supplemental oxygen; Z88.0 Allergy status to penicillin; Z79.899 Other long term (current) drug therapy
CPT/HCPCS: 36415; 71045; 80048; 80061; 80162; 80305; 82550; 82553; 83036; 83880; 84439; 84443; 84484; 85379; 87804; 93005; 93970; 94640; 96374; 97162; 99285; J1200; J1650; J1956; J2060; J2270; J2920; J2930; J3105; J7050; J7611; J7620

== ENCOUNTER 2020-08-15 12:24 | Inpatient (IN) | payer MEDICARE, MEDICAID ==
[~2020-08-15] VITALS: Ht 157.5 cm; Wt 84.0 kg
[~2020-08-15 12:24] MED LIST changes: -ALBU6.7H9 IH; +AMLO10TA80 PO; -AMLO5TAB4 PO; -ATOR20TA PO; +ATOR20TA65 PO; -ATROV3 NS; -AZIT500T5 PO; -BACL-141 PO; +DIGO125T80 PO; -DIGO125T82 PO; -FLUT1DIS3 IH; -FURO-151 PO; +FURO20TA4 PO; -HYDR-519 PO; +IPRA3AMP9 HHN; -LOSA50TA20 PO; +LOSA50TA41 PO; +METH-611 MT; -MONT10TA24 PO; -NAPR220T66 PO; -NITR-87 PO; +P50 MT; -SIMV20TA6 PO
[2020-08-15] MEDS ORDERED: ALBUTEROL (0.083%) 2.5MG/3ML NEB HHN ONE (13:00)
[2020-08-15] MEDS ORDERED: SODIUM CHLORIDE 0.9% 1,000 ML IV ONE (13:45)
[2020-08-15 14:40] LABS: BASOPHILS % 0.5 % (0.0-2.0); EOSINOPHILS % 0.2 % (0.0-5.0); HEMATOCRIT. 29.9 % (36.0-48.0); HEMOGLOBIN. 9.6 g/dL (12.0-16.0); LYMPHOCYTES % 29.1 % (20.0-50.0); MEAN CORPUSCULAR HEMOGLOBIN 27.1 pg (28.0-32.0); MEAN CORPUSCULAR VOLUME 84.2 fL (81.0-99.0); MEAN PLATELET VOLUME 8.5 fl (7.4-10.4); MONOCYTES % 7.5 % (2.0-8.0); NEUTROPHILS % 62.7 % (40.0-76.0); PLATELET 209 x1000/uL (130-400); RED BLOOD CELL COUNT 3.55 mill/uL (4.2-5.4); RED CELL DISTRIBUTION WIDTH 17.2 % (11.6-14.6)
[2020-08-15] MEDS ORDERED: LEVOFLOXACIN 750MG PREMIX 150 ML IV ONE (14:45)
[2020-08-15] MEDS ORDERED: DEXAMETHASONE 10 MG/ML VIAL IV ONE (14:45)
[2020-08-15 14:48] LABS: CHLORIDE 104 mEq/L (98-107)
[2020-08-15] MEDS ORDERED: ASPIRIN 325MG EC TABLET PO ONE (15:30)
[2020-08-15] MEDS ORDERED: CLONIDINE 0.1MG TABLET PO PRN (16:00)
[2020-08-15] MEDS ORDERED: ONDANSETRON HCL 4MG/2ML INJ IV PRN (16:00)
[2020-08-15] MEDS ORDERED: ACETAMINOPHEN 325MG TABLET PO PRN (16:00)
[2020-08-15] MEDS ORDERED: ENOXAPARIN 40MG/0.4ML SYR SUBCUT SCH (16:30)
[2020-08-15] MEDS ORDERED: AZITHROMYCIN 500 MG in DEXT 5% WATER 250 ML IV NR (17:00)
[2020-08-16] MEDS: AZTREONAM 1 G in DEXTROSE 5% WATER 50 ML IV SCH ×3 (08:02→23:42)
[2020-08-16 08:55] LABS: CHLORIDE 105 mEq/L (98-107)
[2020-08-16 09:02] LABS: LDL CHOLESTEROL 84 mg/dL (5-100)
[2020-08-16 09:03] LABS: CREATINE KINASE 53 IU/L (26-192); HDL CHOLESTEROL 33 mg/dL (40-59)
[2020-08-16 09:06] LABS: CREATINE KINASE MB FRACTION 1.1 ng/mL (0.5-3.6)
[2020-08-16] MEDS: ENOXAPARIN 40MG/0.4ML SYR SUBCUT SCH (09:12)
[2020-08-16] MEDS: DEXAMETHASONE 2MG TABLET PO SCH (09:55)
[2020-08-16 10:59] LABS: BG BASE EXCESS -0.9 mmol/L (-2.0-2.0); BG CARBOXYHEMOGLOBIN 0.3 % (0.5-1.5); BG DEOXYHEMOGLOBIN 3.1 % (0.0-5.0); BG FRACTION INSPIRED OXYGEN 100; BG HCO3 ACT 24.2 mmol/L (22.0-26.0); BG METHEMOGLOBIN 0.2 % (0.0-1.5); BG OXYGEN SATURATION 96.9 % (92.0-98.5); BG OXYHEMOGLOBIN 96.4 % (94.0-97.0); BG PCO2 41.9 mmHg (35.0-45.0); BG PH 7.379 (7.350-7.450); BG PO2 99.7 mmHg (75.0-100.0); BG SAMPLE SITE RIGHT RADIAL; BG TOTAL HEMOGLOBIN 9.2 g/dL (12.0-18.0); BG VENT MODE MASK - NRB
[2020-08-16] MEDS: METHADONE HCL 10MG TABLET PO SCH ×2 (13:23→22:00)
[2020-08-16] MEDS ORDERED: LEVOFLOXACIN 250MG PREMIX 100 ML IV SCH (15:00)
[2020-08-16] MEDS: AZITHROMYCIN 250 MG in DEXT 5% WATER 250 ML IV SCH (16:45)
[2020-08-16 17:36] LABS: CLARITY URINE CLOUDY (CLEAR); KETONES URINE NEGATIVE (NEGATIVE); LEUKOCYTE ESTERASE URINE NEGATIVE (NEGATIVE); NITRITE URINE NEGATIVE (NEGATIVE); OCCULT BLOOD URINE TRACE (NEGATIVE); PROTEIN URINE 4+ (NEGATIVE); SPECIFIC GRAVITY URINE 1.019 (1.005-1.030)
[2020-08-16 18:00] LABS: COLOR URINE CH754973 (YELLOW)
[2020-08-16 18:22] LABS: *AMPHETAMINES SCREEN URINE NEGATIVE (NEGATIVE); *BARBITURATES SCREEN URINE NEGATIVE (NEGATIVE); *BENZODIAZEPINES SCREEN URINE NEGATIVE (NEGATIVE); *COCAINE SCREEN URINE NEGATIVE (NEGATIVE)
[2020-08-16 18:23] LABS: CANNABINOID URINE SCREEN NEGATIVE (NEGATIVE); OPIATES URINE SCREEN PRESUMTIVE POSITIVE (NEGATIVE); PHENCYCLIDINE URINE SCREEN NEGATIVE (NEGATIVE)
[2020-08-16 18:24] LABS: METHADONE URINE SCREEN PRESUMTIVE POSITIVE (NEGATIVE)
[2020-08-16] MEDS: ALBUTEROL 6.7GM HFA INHALER ORI PRN (18:45)
[2020-08-16] MEDS: GUAIFENESIN 600MG ER TABLET PO SCH (21:00)
[2020-08-16] MEDS: DIPHENHYDRAMINE 50MG/ML VIAL IV PRN (23:55)
[2020-08-17] MEDS: METHADONE HCL 10MG TABLET PO SCH ×3 (05:58→22:00)
[2020-08-17] MEDS: ASPIRIN 81MG TABLET PO SCH (09:44)
[2020-08-17] MEDS: ENOXAPARIN 40MG/0.4ML SYR SUBCUT SCH (09:44)
[2020-08-17 09:49] LABS: BG BASE EXCESS -1.1 mmol/L (-2.0-2.0); BG CARBOXYHEMOGLOBIN 0.3 % (0.5-1.5); BG DEOXYHEMOGLOBIN 1.4 % (0.0-5.0); BG FRACTION INSPIRED OXYGEN 100; BG HCO3 ACT 23.3 mmol/L (22.0-26.0); BG METHEMOGLOBIN 0.2 % (0.0-1.5); BG OXYGEN SATURATION 98.6 % (92.0-98.5); BG OXYHEMOGLOBIN 98.1 % (94.0-97.0); BG PCO2 37.2 mmHg (35.0-45.0); BG PH 7.415 (7.350-7.450); BG PO2 147.2 mmHg (75.0-100.0); BG SAMPLE SITE RIGHT RADIAL; BG TOTAL HEMOGLOBIN 8.2 g/dL (12.0-18.0); BG VENT MODE MASK - BIPAP
[2020-08-17] MEDS: GUAIFENESIN 600MG ER TABLET PO SCH ×2 (11:50→21:00)
[2020-08-17] MEDS: DEXAMETHASONE 2MG TABLET PO SCH (11:50)
[2020-08-17] MEDS: AZTREONAM 1 G in DEXTROSE 5% WATER 50 ML IV SCH ×2 (13:48→23:00)
[2020-08-17 15:28] LABS: BASOPHILS % 0.1 % (0.0-2.0); HEMATOCRIT. 29.3 % (36.0-48.0); HEMOGLOBIN. 9.4 g/dL (12.0-16.0); LYMPHOCYTES % 12.6 % (20.0-50.0); MEAN CORPUSCULAR HEMOGLOBIN 26.7 pg (28.0-32.0); MEAN CORPUSCULAR VOLUME 83.6 fL (81.0-99.0); MEAN PLATELET VOLUME 8.7 fl (7.4-10.4); MONOCYTES % 7.1 % (2.0-8.0); NEUTROPHILS % 80.2 % (40.0-76.0); PLATELET 238 x1000/uL (130-400); RED BLOOD CELL COUNT 3.51 mill/uL (4.2-5.4); RED CELL DISTRIBUTION WIDTH 17.4 % (11.6-14.6)
[2020-08-17] MEDS: AZITHROMYCIN 250 MG in DEXT 5% WATER 250 ML IV SCH (17:48)
[2020-08-18] MEDS: METHADONE HCL 10MG TABLET PO SCH ×3 (08:37→21:19)
[2020-08-18] MEDS: GUAIFENESIN 600MG ER TABLET PO SCH ×2 (09:00→21:00)
[2020-08-18] MEDS ORDERED: ENOXAPARIN 30MG/0.3ML SYR SUBCUT SCH (09:00)
[2020-08-18] MEDS: ASPIRIN 81MG TABLET PO SCH (09:06)
[2020-08-18] MEDS: ALBUTEROL 6.7GM HFA INHALER ORI PRN ×2 (09:08→13:02)
[2020-08-18] MEDS: DEXAMETHASONE 2MG TABLET PO SCH (09:24)
[2020-08-18 09:35] LABS: BASOPHILS % 0.3 % (0.0-2.0); HEMATOCRIT. 30.9 % (36.0-48.0); LYMPHOCYTES % 7.7 % (20.0-50.0); MEAN CORPUSCULAR VOLUME 83.2 fL (81.0-99.0); MEAN PLATELET VOLUME 8.2 fl (7.4-10.4); MONOCYTES % 7.2 % (2.0-8.0); NEUTROPHILS % 84.8 % (40.0-76.0); PLATELET 257 x1000/uL (130-400); RED BLOOD CELL COUNT 3.71 mill/uL (4.2-5.4); RED CELL DISTRIBUTION WIDTH 17.5 % (11.6-14.6)
[2020-08-18 10:00] LABS: BG BASE EXCESS -0.3 mmol/L (-2.0-2.0); BG CARBOXYHEMOGLOBIN 0.3 % (0.5-1.5); BG DEOXYHEMOGLOBIN 1.6 % (0.0-5.0); BG FRACTION INSPIRED OXYGEN 100; BG HCO3 ACT 24.5 mmol/L (22.0-26.0); BG METHEMOGLOBIN 0.3 % (0.0-1.5); BG OXYGEN SATURATION 98.4 % (92.0-98.5); BG OXYHEMOGLOBIN 97.8 % (94.0-97.0); BG PCO2 40.2 mmHg (35.0-45.0); BG PH 7.402 (7.350-7.450); BG PO2 128.8 mmHg (75.0-100.0); BG SAMPLE SITE RIGHT RADIAL; BG TOTAL RESPIRATORY RATE 20 b/min; BG VENT MODE MASK - BIPAP
[2020-08-18] MEDS: AZTREONAM 1 G in DEXTROSE 5% WATER 50 ML IV SCH ×2 (11:48→23:00)
[2020-08-18] MEDS ORDERED: LORAZEPAM 0.5MG TABLET PO PRN (15:30)
[2020-08-18] MEDS ORDERED: ENOXAPARIN 80MG/0.8ML SYR SUBCUT SCH (16:00)
[2020-08-18] MEDS ORDERED: ENOXAPARIN 60MG/0.6ML SYR SUBCUT NR (17:00)
[2020-08-18 17:23] LABS: BG BASE EXCESS -1.6 mmol/L (-2.0-2.0); BG CARBOXYHEMOGLOBIN 0.2 % (0.5-1.5); BG DEOXYHEMOGLOBIN 15.2 % (0.0-5.0); BG FRACTION INSPIRED OXYGEN 75; BG HCO3 ACT 23.6 mmol/L (22.0-26.0); BG OXYGEN SATURATION 84.8 % (92.0-98.5); BG OXYHEMOGLOBIN 84.6 % (94.0-97.0); BG PCO2 41.6 mmHg (35.0-45.0); BG PH 7.372 (7.350-7.450); BG PO2 51.8 mmHg (75.0-100.0); BG SAMPLE SITE RIGHT RADIAL; BG TOTAL HEMOGLOBIN 13.7 g/dL (12.0-18.0); BG VENT MODE MASK - BIPAP
[2020-08-18] MEDS: AZITHROMYCIN 250 MG in DEXT 5% WATER 250 ML IV SCH (17:39)
[2020-08-18] MEDS ORDERED: FUROSEMIDE 100MG/10ML VIAL IVP ONE (20:45)
[2020-08-18] MEDS ORDERED: METOPROLOL TARTRATE 25MG TABLET PO ONE (21:15)
[2020-08-18] MEDS ORDERED: METOPROLOL TARTRATE 5MG/5ML VIAL IV ONE ×2 (21:15)
[2020-08-19] MEDS: METHADONE HCL 10MG TABLET PO SCH ×2 (06:57→14:41)
[2020-08-19 08:17] LABS: BG BASE EXCESS 0.1 mmol/L (-2.0-2.0); BG CARBOXYHEMOGLOBIN 0.3 % (0.5-1.5); BG DEOXYHEMOGLOBIN 11.2 % (0.0-5.0); BG HCO3 ACT 25.4 mmol/L (22.0-26.0); BG METHEMOGLOBIN 0.3 % (0.0-1.5); BG OXYGEN SATURATION 88.7 % (92.0-98.5); BG OXYHEMOGLOBIN 88.2 % (94.0-97.0); BG PCO2 44.4 mmHg (35.0-45.0); BG PH 7.376 (7.350-7.450); BG PO2 59.4 mmHg (75.0-100.0); BG SAMPLE SITE RIGHT BRACHIAL; BG TOTAL HEMOGLOBIN 9.9 g/dL (12.0-18.0); BG VENT MODE MASK - BIPAP
[2020-08-19 08:33] LABS: HEMATOCRIT. 30.4 % (36.0-48.0); HEMOGLOBIN. 9.8 g/dL (12.0-16.0); MEAN CORPUSCULAR HEMOGLOBIN 26.4 pg (28.0-32.0); MEAN CORPUSCULAR VOLUME 82.4 fL (81.0-99.0); MEAN PLATELET VOLUME 8.2 fl (7.4-10.4); PLATELET 255 x1000/uL (130-400); RED CELL DISTRIBUTION WIDTH 17.4 % (11.6-14.6)
[2020-08-19 08:44] LABS: INR 1.2
[2020-08-19 08:50] LABS: CHLORIDE 104 mEq/L (98-107)
[2020-08-19] MEDS: ASPIRIN 81MG TABLET PO SCH ×2 (08:57→09:00)
[2020-08-19] MEDS: GUAIFENESIN 600MG ER TABLET PO SCH ×2 (09:00→09:33)
[2020-08-19] MEDS: DEXAMETHASONE 2MG TABLET PO SCH ×2 (09:00→09:33)
[2020-08-19] MEDS: ALBUTEROL 6.7GM HFA INHALER ORI PRN (09:20)
[2020-08-19] MEDS: AMIODARONE HCL 900 MG in DEXT 5% WATER 482 ML IV PRN (10:23)
[2020-08-19] MEDS: AZTREONAM 1 G in DEXTROSE 5% WATER 50 ML IV SCH (11:00)
[2020-08-19] MEDS ORDERED: ENOXAPARIN 80MG/0.8ML SYR SUBCUT SCH (12:00)
[2020-08-19 21:46] LABS: PLATELET ESTIMATE NORMAL
[2020-08-20 08:13] LABS: BG BASE EXCESS -1.2 mmol/L (-2.0-2.0); BG CARBOXYHEMOGLOBIN 0.4 % (0.5-1.5); BG DEOXYHEMOGLOBIN 4.3 % (0.0-5.0); BG HCO3 ACT 24.7 mmol/L (22.0-26.0); BG METHEMOGLOBIN 0.2 % (0.0-1.5); BG OXYGEN SATURATION 95.7 % (92.0-98.5); BG OXYHEMOGLOBIN 95.1 % (94.0-97.0); BG PCO2 47.3 mmHg (35.0-45.0); BG PH 7.336 (7.350-7.450); BG PO2 86.2 mmHg (75.0-100.0); BG SAMPLE SITE LEFT RADIAL; BG TOTAL HEMOGLOBIN 8.9 g/dL (12.0-18.0); BG TOTAL RESPIRATORY RATE 39 b/min; BG VENT MODE MASK - BIPAP
[2020-08-20] MEDS: DIPHENHYDRAMINE 50MG/ML VIAL IV PRN (08:22)
[2020-08-20] MEDS: METHADONE HCL 10MG TABLET PO SCH ×3 (08:22→23:35)
[2020-08-20 09:11] LABS: HEMATOCRIT. 25.7 % (36.0-48.0); HEMOGLOBIN. 8.1 g/dL (12.0-16.0); MEAN CORPUSCULAR HEMOGLOBIN 26.3 pg (28.0-32.0); MEAN CORPUSCULAR VOLUME 83.4 fL (81.0-99.0); MEAN PLATELET VOLUME 8.9 fl (7.4-10.4); PLATELET 287 x1000/uL (130-400); RED BLOOD CELL COUNT 3.08 mill/uL (4.2-5.4); RED CELL DISTRIBUTION WIDTH 17.5 % (11.6-14.6)
[2020-08-20] MEDS: PHENYLEPHRINE 50 MG in DEXT 5% WATER 245 ML IV PRN (10:53)
[2020-08-20] MEDS: GUAIFENESIN 600MG ER TABLET PO SCH ×3 (11:02→23:30)
[2020-08-20] MEDS: AZTREONAM 1 G in DEXTROSE 5% WATER 50 ML IV SCH ×3 (11:02→23:00)
[2020-08-20] MEDS: DEXAMETHASONE 10 MG/ML VIAL IV SCH (12:31)
[2020-08-20] MEDS: ASPIRIN 81MG TABLET PO SCH (12:31)
[2020-08-20] MEDS: PANTOPRAZOLE SODIUM 40 MG/VIAL IV SCH ×2 (12:31→23:35)
[2020-08-20 13:08] LABS: PLATELET ESTIMATE NORMAL
[2020-08-20] MEDS: AZITHROMYCIN 250 MG in DEXT 5% WATER 250 ML IV SCH (14:32)
[2020-08-20] MEDS ORDERED: PANTOPRAZOLE SODIUM 40 MG/VIAL IV SCH (21:00)
[2020-08-20] MEDS: AMIODARONE HCL 900 MG in DEXT 5% WATER 482 ML IV PRN (21:37)
[2020-08-21] MEDS ORDERED: NALOXONE HCL 1 MG/ML 2ML VIAL IV SCH ×3 (00:30)
[2020-08-21] MEDS ORDERED: NALOXONE HCL 1 MG/ML 2ML VIAL IV ONE (01:00)
[2020-08-21] MEDS ORDERED: PROPOFOL 10MG/ML 100ML 100 ML IV PRN (01:15)
[2020-08-21] MEDS: METHADONE HCL 10MG TABLET PO SCH ×2 (02:21→14:00)
[2020-08-21 04:39] LABS: HEMATOCRIT. 28.4 % (36.0-48.0); HEMOGLOBIN. 8.5 g/dL (12.0-16.0); MEAN CORPUSCULAR HEMOGLOBIN 26.4 pg (28.0-32.0); MEAN CORPUSCULAR VOLUME 87.8 fL (81.0-99.0); MEAN PLATELET VOLUME 8.8 fl (7.4-10.4); PLATELET 371 x1000/uL (130-400); RED BLOOD CELL COUNT 3.23 mill/uL (4.2-5.4); RED CELL DISTRIBUTION WIDTH 18.1 % (11.6-14.6)
[2020-08-21] MEDS ORDERED: NOREPINEPHRINE 8MG/250ML PMX 250ML IV PRN (05:00)
[2020-08-21 05:32] LABS: HEPATITIS B SURFACE ANTIGEN NEGATIVE
[2020-08-21 05:41] LABS: FERRITIN 1213 ng/mL (10-291)
[2020-08-21 06:00] LABS: HEPATITIS A AB IGM NEGATIVE (NEGATIVE)
[2020-08-21] MEDS ORDERED: DEXTROSE 50% WATER 50ML SYRINGE IV PRN (06:15)
[2020-08-21] MEDS ORDERED: BLOOD SUGAR DIAGNOSTIC STRIP TEST SCH (06:30)
[2020-08-21] MEDS ORDERED: INSULIN LISPRO (MEDIUM DOSE) 100 UNITS/ML SUBCUT SCH (07:00)
[2020-08-21] MEDS ORDERED: MIDAZOLAM HCL 100 MG in DEXT 5% WATER 100 ML IV PRN ×2 (08:00→17:00)
[2020-08-21] MEDS: NOREPINEPHRINE 8 MG in DEXTROSE 5% WATER 250 ML IV PRN ×4 (08:20→19:48)
[2020-08-21] MEDS: ASPIRIN 81MG TABLET PO SCH (09:00)
[2020-08-21] MEDS: BISACODYL 5MG TABLET PO SCH (09:00)
[2020-08-21] MEDS: GUAIFENESIN 600MG ER TABLET PO SCH (09:00)
[2020-08-21] MEDS: PANTOPRAZOLE SODIUM 40 MG/VIAL IV SCH (09:38)
[2020-08-21 10:13] LABS: NUCLEATED RED BLOOD CELLS 2 /100 WBC; PLATELET ESTIMATE NORMAL
[2020-08-21] MEDS: DEXAMETHASONE 10 MG/ML VIAL IV SCH (11:07)
[2020-08-21 12:44] LABS: BG BASE EXCESS -14.7 mmol/L (-2.0-2.0); BG CARBOXYHEMOGLOBIN 0.3 % (0.5-1.5); BG DEOXYHEMOGLOBIN 23.8 % (0.0-5.0); BG FRACTION INSPIRED OXYGEN 100; BG HCO3 ACT 15.3 mmol/L (22.0-26.0); BG METHEMOGLOBIN 0.3 % (0.0-1.5); BG OXYGEN SATURATION 76.1 % (92.0-98.5); BG OXYHEMOGLOBIN 75.6 % (94.0-97.0); BG PCO2 56.4 mmHg (35.0-45.0); BG PH 7.052 (7.350-7.450); BG PO2 54.8 mmHg (75.0-100.0); BG SAMPLE SITE RIGHT RADIAL; BG TOTAL HEMOGLOBIN 9.7 g/dL (12.0-18.0); BG VENT MODE VENT - AC
[2020-08-21] MEDS ORDERED: SODIUM BICARBONATE 8.4% 1 MEQ/ML 50ML SYR IV ONE (14:00)
[2020-08-21 16:31] LABS: BG BASE EXCESS -2.3 mmol/L (-2.0-2.0); BG CARBOXYHEMOGLOBIN 0.3 % (0.5-1.5); BG DEOXYHEMOGLOBIN 13.1 % (0.0-5.0); BG FRACTION INSPIRED OXYGEN 100; BG HCO3 ACT 26.8 mmol/L (22.0-26.0); BG METHEMOGLOBIN 0.3 % (0.0-1.5); BG OXYGEN SATURATION 86.8 % (92.0-98.5); BG OXYHEMOGLOBIN 86.3 % (94.0-97.0); BG PCO2 75.2 mmHg (35.0-45.0); BG PO2 62.3 mmHg (75.0-100.0); BG SAMPLE SITE RIGHT BRACHIAL; BG TOTAL HEMOGLOBIN 8.6 g/dL (12.0-18.0); BG VENT MODE VENT - AC
[2020-08-21] MEDS ORDERED: MIDAZOLAM HCL 100 MG in SODIUM CHLORIDE 0.9% 80 ML IV PRN ×2 (17:00→20:45)
[2020-08-21] MEDS: PHENYLEPHRINE 50 MG in DEXT 5% WATER 245 ML IV PRN (19:49)
[2020-08-21] MEDS ORDERED: FENTANYL CITRATE/PF 2,500 MCG in SODIUM CHLORIDE 0.9% 200 ML IV PRN (20:45)
[2020-08-22] VITALS (64 sets, daily range): BP systolic 67–126; BP diastolic 41–89
[2020-08-22] MEDS ORDERED: PHENYLEPHRINE 100 MG in DEXT 5% WATER 240 ML IV SCH (02:00)
[2020-08-22] MEDS ORDERED: NOREPINEPHRINE 32 MG in DEXT 5% WATER 242 ML IV SCH (02:00)
[2020-08-22] MEDS: PHENYLEPHRINE 100 MG in DEXT 5% WATER 250 ML IV PRN ×3 (03:46→17:36)
[2020-08-22] MEDS: NOREPINEPHRINE 32 MG in DEXTROSE 5% WATER 250 ML IV PRN ×3 (03:47→16:54)
[2020-08-22] MEDS: VASOPRESSIN 20 UNIT in SODIUM CHLORIDE 0.9% 99 ML IV PRN ×3 (03:48→19:26)
[2020-08-22 05:57] LABS: CHLORIDE 97 mEq/L (98-107)
[2020-08-22 06:06] LABS: HEMATOCRIT. 30.2 % (36.0-48.0); HEMOGLOBIN. 9.5 g/dL (12.0-16.0); MEAN CORPUSCULAR HEMOGLOBIN 26.3 pg (28.0-32.0); MEAN CORPUSCULAR VOLUME 83.2 fL (81.0-99.0); MEAN PLATELET VOLUME 7.6 fl (7.4-10.4); PLATELET 266 x1000/uL (130-400); RED BLOOD CELL COUNT 3.63 mill/uL (4.2-5.4); RED CELL DISTRIBUTION WIDTH 17.4 % (11.6-14.6)
[2020-08-22 07:50] LABS: BG BASE EXCESS -9.3 mmol/L (-2.0-2.0); BG CARBOXYHEMOGLOBIN 0.4 % (0.5-1.5); BG DEOXYHEMOGLOBIN 23.8 % (0.0-5.0); BG FRACTION INSPIRED OXYGEN 100; BG HCO3 ACT 21.8 mmol/L (22.0-26.0); BG METHEMOGLOBIN 0.3 % (0.0-1.5); BG OXYHEMOGLOBIN 75.5 % (94.0-97.0); BG PCO2 79.5 mmHg (35.0-45.0); BG PH 7.055 (7.350-7.450); BG SAMPLE SITE RIGHT RADIAL; BG TOTAL HEMOGLOBIN 10.5 g/dL (12.0-18.0); BG TOTAL RESPIRATORY RATE 42 b/min; BG VENT MODE VENT - AC
[2020-08-22 07:51] LABS: C REACTIVE PROTEIN CARDIAC > 190.00 mg/L (0.00-3.00)
[2020-08-22 08:33] LABS: PLATELET ESTIMATE NORMAL
[2020-08-22] MEDS ORDERED: LIDOCAINE HCL 1% 20ML VIAL (Pyxis) INJ ONE (08:51)
[2020-08-22] MEDS ORDERED: SODIUM BICARBONATE 4% (2.4MEQ) 5ML VIAL IV ONE (08:51)
[2020-08-22] MEDS: DEXAMETHASONE 10 MG/ML VIAL IV SCH (09:45)
[2020-08-22] MEDS: PANTOPRAZOLE SODIUM 40 MG/VIAL IV SCH ×2 (09:45→22:11)
[2020-08-22] MEDS: BISACODYL 5MG TABLET PO SCH (09:45)
[2020-08-22] MEDS: ASPIRIN 81MG TABLET PO SCH (09:45)
[2020-08-22] MEDS: ASCORBIC ACID 500 MG TABLET PO SCH ×3 (09:45→22:00)
[2020-08-22] MEDS: GUAIFENESIN 600MG ER TABLET PO SCH ×2 (09:46→21:00)
[2020-08-22] MEDS ORDERED: ACETYLCYSTEINE 100MG/ML 10% VIAL 4ML INH SCH (14:00)
[2020-08-22] MEDS ORDERED: MIDAZOLAM HCL 100 MG in DEXT 5% WATER 80 ML IV PRN (19:15)
[2020-08-22] MEDS ORDERED: EPINEPHRINE 10 MG in SODIUM CHLORIDE 0.9% 240 ML IV SCH (20:15)
[2020-08-22] MEDS: IPRATROPIUM/ALBUTEROL 0.5-3(2.5)MG/3ML NEB HHN SCH (20:35)
[2020-08-22] MEDS ORDERED: NOREPINEPHRINE 64 MG in DEXT 5% WATER 436 ML IV PRN (21:15)
[2020-08-22] MEDS ORDERED: PHENYLEPHRINE 200 MG in DEXT 5% WATER 480 ML IV PRN (22:00)
[2020-08-22] MEDS: EPINEPHRINE 20 MG in SODIUM CHLORIDE 0.9% 480 ML IV SCH (22:09)
[2020-08-23] VITALS (11 sets, daily range): BP systolic 65–96; BP diastolic 44–52
[2020-08-23] MEDS: IPRATROPIUM/ALBUTEROL 0.5-3(2.5)MG/3ML NEB HHN SCH ×2 (00:10→04:10)
[2020-08-23] MEDS: VASOPRESSIN 20 UNIT in SODIUM CHLORIDE 0.9% 99 ML IV PRN (03:18)
[2020-08-23] MEDS: EPINEPHRINE 20 MG in SODIUM CHLORIDE 0.9% 480 ML IV SCH (03:21)
== END 2020-08-23 07:30 | disposition expired | DRG 871 ==
LOC: ER 12:24 → MICUSO 15:40 → EDBEDREQ 15:48 → 7WST 08-17 08:19 → MICUSO 08-17 08:23 → CVICU 08-21 17:24
PROVIDERS: ADMIT Internal Medicine; ATTEND Internal Medicine
PROC: 5A09557 Assistance with Respiratory Ventilation, Greater than 96 Consecutive Hours, Continuous Positive Airway Pressure (ICD-10-PCS; 2020-08-16)
PROC: 5A12012 Performance of Cardiac Output, Single, Manual (ICD-10-PCS; 2020-08-21)
PROC: 5A1945Z Respiratory Ventilation, 24-96 Consecutive Hours (ICD-10-PCS; principal; 2020-08-22)
PROC: 0BH17EZ Insertion of Endotracheal Airway into Trachea, Via Natural or Artificial Opening (ICD-10-PCS; 2020-08-22)
PROC: 05HY33Z Insertion of Infusion Device into Upper Vein, Percutaneous Approach (ICD-10-PCS; 2020-08-22)
PROC: B54MZZA Ultrasonography of Right Upper Extremity Veins, Guidance (ICD-10-PCS; 2020-08-22)
DX: A41.89 Other specified sepsis (principal); U07.1 COVID-19; J12.89 Other viral pneumonia; J96.21 Acute and chronic respiratory failure with hypoxia; R65.21 Severe sepsis with septic shock; E44.0 Moderate protein-calorie malnutrition; I13.0 Hypertensive heart and chronic kidney disease with heart failure and stage 1 through stage 4 chronic kidney disease, or unspecified chronic kidney disease; I50.30 Unspecified diastolic (congestive) heart failure; N17.9 Acute kidney failure, unspecified; J44.0 Chronic obstructive pulmonary disease with (acute) lower respiratory infection; N18.4 Chronic kidney disease, stage 4 (severe); E87.1 Hypo-osmolality and hyponatremia; E87.2 Acidosis; J44.1 Chronic obstructive pulmonary disease with (acute) exacerbation; Z51.5 Encounter for palliative care; I46.9 Cardiac arrest, cause unspecified; B19.20 Unspecified viral hepatitis C without hepatic coma; F11.10 Opioid abuse, uncomplicated; D50.0 Iron deficiency anemia secondary to blood loss (chronic); F14.10 Cocaine abuse, uncomplicated; I48.91 Unspecified atrial fibrillation; F17.210 Nicotine dependence, cigarettes, uncomplicated; E11.22 Type 2 diabetes mellitus with diabetic chronic kidney disease; Z88.0 Allergy status to penicillin; Z99.81 Dependence on supplemental oxygen; Z68.33 Body mass index [BMI] 33.0-33.9, adult; Z79.82 Long term (current) use of aspirin; Z79.899 Other long term (current) drug therapy; D64.9 Anemia, unspecified; K29.60 Other gastritis without bleeding
CPT/HCPCS: 36415; 36600; 71045; 76770; 76937; 80048; 80053; 80061; 80305; 81003; 82375; 82550; 82553; 82728; 82805; 82962; 83540; 83550; 83605; 83615; 83735; 83880; 84075; 84145; 84443; 84450; 84460; 84484; 85025; 85044; 85379; 86141; 86705; 86709; 86803; 87070; 87340; 93005; 93970; 94003; 94660; 99291; C1725; C9113; J0282; J0456; J1100; J1200; J1650; J1940; J1956; J2250; J2310; J2370; J2704; J3010; J3490; J7030; J7040; J7050; J7060; J7608; J8540; U0003